=== PATIENT | male | born 1930 | race Caucasian/White ===

== ENCOUNTER 2019-08-16 15:30 | Inpatient (IN) | payer OTHER, BC ==
[~2019-08-16] VITALS: Ht 198.1 cm; Wt 88.9 kg
--- NOTE | 2019-08-16 16:00 | NUR ---
Placed in room 8. Placed on athletic monitor, blood pressure machine and pulse oximeter. To gown for exam. Side rails up.
[2019-08-16] MEDS ORDERED: NACL 0.9% 1,000 ML IV ONE (16:14)
[2019-08-16 16:15] VITALS: BP_SYST 96
--- NOTE | 2019-08-16 16:15 | NUR ---
ER Dr. Teran at bedside examining patient.
--- NOTE | 2019-08-16 16:15 | NUR ---
Patient is awake, alert, and oriented x4. Patient was told by Dr. Dudley to come to the office due to abnormal lab values. Family does not know what it is. No complaints from patient at this time.
[2019-08-16 16:44] LABS: BASOPHILS % (AUTO) 0.3 % (0.0-2.0); EOSINOPHILS % (AUTO) 0.1 % (0.0-4.0); HEMATOCRIT 29.7 % (36-54); LYMPHOCYTES # (AUTO) 0.5 K/uL (1.0-5.5); LYMPHOCYTES % (AUTO) 6.4 % (20.5-51.5); MEAN CORPUSCULAR HEMOGLOBIN 30 pg (27-31); MEAN CORPUSCULAR HGB CONC 34 % (32-36); MEAN CORPUSCULAR VOLUME 90 fL (79.0-98.0); MONOCYTES # (AUTO) 0.3 K/uL (0.0-1.0); MONOCYTES % (AUTO) 4.1 % (1.7-9.3); NEUTROPHILS # (AUTO) 6.5 K/uL (1.8-7.7); NEUTROPHILS % (AUTO) 89.1 % (40.0-70.0); PLATELET COUNT (AUTO) 123 K/uL (130-430); RED CELL DISTRIBUTION WIDTH 21.4 % (9.0-15.0); WHITE BLOOD COUNT (AUTO) 7.3 K/uL (4.8-10.8)
--- NOTE | 2019-08-16 16:45 | NUR ---
ASSUMED CARE OF PATIENT
[2019-08-16 16:48] LABS: BILIRUBIN,URINE NEGATIVE (NEGATIVE); BLOOD, URINE NEGATIVE (NEGATIVE); CLARITY/URINE CLEAR (CLEAR); COLOR,URINE YELLOW (YELLOW); GLUCOSE,URINE 2+ (NEGATIVE); KETONES,URINE NEGATIVE (NEGATIVE); LEUKOCYTE ESTERASE ,URINE NEGATIVE (NEGATIVE); NITRITE, URINE NEGATIVE (NEGATIVE); PH,URINE 6.5 (5.0-8.0); PROTEIN URINE NEGATIVE (NEGATIVE); UROBILINOGEN,URINE 0.2 (0.2-1.0)
[2019-08-16 17:02] LABS: ALANINE AMINOTRANSFERASE 38 U/L (12-78); ANION GAP 8 (5-15); ASPARTATE AMINOTRANSFERASE 48 U/L (10-37); CALCIUM 9.8 mg/dL (8.4-11.0); CHLORIDE 99 mmol/L (98-107); CREATININE 1.92 mg/dL (0.55-1.30); SODIUM SERUM 128 mmol/L (136-145); TOTAL BILIRUBIN 0.5 mg/dL (0.0-1.0); UREA NITROGEN, BLOOD 85 mg/dL (8-21)
[2019-08-16 17:03] LABS: BACTERIA,URINE FEW /HPF (None Seen); RBC,URINE 0-3 /HPF (0-3); WBC,URINE 0-3 /HPF (0-3)
[2019-08-16 17:07] LABS: GLUCOSE 430 mg/dL (70-99); POTASSIUM 6.9 mmol/L (3.5-5.1)
[2019-08-16] MEDS ORDERED: INSULIN REGULAR, HUMAN 10 UNITS/0.1 ML INJ IVP ONE (17:15)
[2019-08-16] MEDS ORDERED: SODIUM POLYSTYRENE SULFONATE 15 GM/60 ML UDBTL PO ONE (17:15)
--- NOTE | 2019-08-16 18:15 | NUR ---
DAUGHTER OF PT: DEWEY BAJWA AT , STATES SHE IS "POWER OF ATTORNY" DEWEY BAJWA [phone]
[2019-08-16] MEDS ORDERED: INSU300I SQ (18:38)
[2019-08-16] MEDS ORDERED: LISI2.5T48 PO ×2 (18:39)
[2019-08-16] MEDS ORDERED: MEGE20TA6 PO (18:43)
[2019-08-16] MEDS ORDERED: LEVO75TA7 PO (18:43)
[2019-08-16] MEDS ORDERED: GLIP5TAB26 PO (18:45)
[2019-08-16] MEDS ORDERED: TAMS-11 PO (18:45)
[2019-08-16] MEDS ORDERED: FURO-149 PO (18:49)
[2019-08-16] MEDS ORDERED: MAGN400C PO (18:49)
[2019-08-16] MEDS ORDERED: PRED10TA PO (18:49)
[2019-08-16] MEDS ORDERED: VITD2000 PO (18:49)
[2019-08-16] MEDS ORDERED: CHOL500037 PO (18:49)
[2019-08-16] MEDS ORDERED: ALLO100T PO (18:49)
[2019-08-16] MEDS ORDERED: CYAN100010 PO (18:52)
[2019-08-16] MEDS ORDERED: CALC-1050 PO (18:52)
[2019-08-16] MEDS ORDERED: POTA10TA15 PO (18:52)
[2019-08-16] MEDS ORDERED: FERR159T3 PO (18:53)
[2019-08-16] MEDS ORDERED: BACL10TA PO (18:56)
[2019-08-16] MEDS ORDERED: SPIR50TA5 PO (18:56)
--- NOTE | 2019-08-16 18:57 | NUR ---
Medication reconciliation completed with information provided by DAUGHTER OF PATIENT. Any prior medication reconciliation on file was reviewed and corrected.
[2019-08-16] MEDS ORDERED: SSNOVOLOG SUBCUT (18:59)
[2019-08-16] MEDS ORDERED: APIX2.5T PO (18:59)
--- NOTE | 2019-08-16 19:03 | NUR ---
Patient will be admitted to care of DR. CUMMINGS. Admitted to TELE unit. Will go to room 132C. Belongings list completed. Complete and up to date summary report printed. SBAR report to be given at bedside with opportunity for questions. Transfer to TELE via ACLS protocol. Licensed nurse present. IV present no signs or symptoms of infiltration.
--- NOTE | 2019-08-16 19:15 | NUR ---
ADMISSION NOTE Received patient from ER via tabitha, received report from ASSEMBLY MACHINE OFFBEARER. Patient admitted with diagnosis of DEHYDRATIONA AND POSSIBLE PNA. Patient oriented to hospital routine, call light, toileting and safety-patient verbalized understanding. FAMILY AT THE BEDSIDE.
[2019-08-16 19:28] VITALS: BP_SYST 96
--- NOTE | 2019-08-16 20:00 | NUR ---
Family at the bedside. Pt is sitting in bed with his feet on the floor. No c/o pain or discomfort.
[2019-08-16] MEDS ORDERED: LevALBUTEROL HCL 1.25 MG/0.5 ML *CONC.* VIAL.NEB (XOPENEX CONC.) INH PRN (20:15)
[2019-08-16] MEDS ORDERED: MEGESTROL ACETATE 40 MG PO SCH (21:00)
[2019-08-16] MEDS: BACLOFEN 10 MG TABLET PO SCH ×2 (21:00→21:38)
[2019-08-16] MEDS ORDERED: MEGESTROL ACETATE 400 MG/10 ML UDC PO SCH (21:00)
[2019-08-16] MEDS: 0.45% NACL 1,000 ML IV SCH (21:39)
[2019-08-16] MEDS: DOXYCYCLINE HYCLATE 100 MG in D5W 100 ML IV SCH (21:39)
[2019-08-16] MEDS ORDERED: DOXYCYCLINE HYCLATE 100 MG VIAL IV ONE (21:40)
--- NOTE | 2019-08-16 22:00 | NUR ---
IVF is infusing well in RAC. Pt still sitting on his bed with his feet on the floor.Family at the bedside.
[2019-08-16] MEDS: INSULIN REGULAR, HUMAN 100 UNITS/ML, 10 ML VIAL (humuLIN R) SUBCUT PRN (23:20)
--- NOTE | 2019-08-16 23:20 | NUR ---
Accucheck 241 and 4 units Regular Insulin given SQ. Skin warm and dry to touch. IVF is infusing well in RAC. Family still visiting at the bedside.
--- NOTE | 2019-08-17 01:00 | NUR ---
Pt is resting quietly in bed. Call light is with pt and bed alarm is on. Caregiver is at the bedside in a recliner.
[2019-08-17 01:57] VITALS: BP_SYST 95
[2019-08-17 03:00] VITALS: BP_SYST 95
--- NOTE | 2019-08-17 03:00 | NUR ---
Pt is sleeping without any distress noted. IVF is infusing well in RAC. Call light is with pt and bed alarm is on. Pt's Caregiver is in the room with pt.
--- NOTE | 2019-08-17 04:20 | NUR ---
Pt was incontinent of urine. Mindy care given by SUPERVISOR EXTRUSION.
--- NOTE | 2019-08-17 05:22 | NUR ---
Accucheck 109 and no Insulin coverage needed. Skin warm and dry to touch. IVF is infusing well in RAC. Caregiver is at the bedside.
[2019-08-17] MEDS: LEVOTHYROXINE SODIUM 0.075 MG TABLET PO SCH ×2 (06:24→17:08)
--- NOTE | 2019-08-17 06:49 | NUR ---
Pt is awake and resting comfortably in bed. All pt's needs were attended to. IVF is infusing well in RAC. Will endorse to day shift nurse.
[2019-08-17 07:32] LABS: BASOPHILS % (AUTO) 0.4 % (0.0-2.0); EOSINOPHILS # (AUTO) 0.1 K/uL (0.0-0.4); HEMOGLOBIN 9.1 g/dL (14.0-18.0); MONOCYTES # (AUTO) 0.7 K/uL (0.0-1.0); WHITE BLOOD COUNT (AUTO) 8.4 K/uL (4.8-10.8)
[2019-08-17] MEDS: LevALBUTEROL HCL 1.25 MG/0.5 ML *CONC.* VIAL.NEB (XOPENEX CONC.) INH SCH ×3 (07:41→22:01)
[2019-08-17 07:48] LABS: MEAN CORPUSCULAR HGB CONC 34 % (32-36); MEAN CORPUSCULAR VOLUME 90 fL (79.0-98.0)
[2019-08-17 07:52] LABS: HEMATOCRIT 26.8 % (36-54); MEAN CORPUSCULAR HEMOGLOBIN 31 pg (27-31); NEUTROPHILS % (AUTO) 74.8 % (40.0-70.0); PLATELET COUNT (AUTO) 115 K/uL (130-430); RED BLOOD CELL COUNT(AUTO) 2.99 MIL/uL (4.2-6.2); RED CELL DISTRIBUTION WIDTH 21.7 % (9.0-15.0)
[2019-08-17 07:53] LABS: EOSINOPHILS % (AUTO) 1.5 % (0.0-4.0); LYMPHOCYTES # (AUTO) 1.3 K/uL (1.0-5.5); MONOCYTES % (AUTO) 8.3 % (1.7-9.3); NEUTROPHILS # (AUTO) 6.2 K/uL (1.8-7.7)
[2019-08-17 08:00] VITALS: BP_SYST 92
--- NOTE | 2019-08-17 08:00 | NUR ---
AM ASSESSMENT. PT ALERT, TRANSLATING WORDS FROM [place] TO [place] TOWARDS HIS FAMILY, PATIENT AFEBRILE, STATED "I'M FINE, WHEN I'M NOT MOVING OR TURNING", CALL LIGHT PLACED IN REACH FOR ASSISTANCE.
[2019-08-17 08:06] LABS: ANION GAP 4 (5-15); CALCIUM 9.5 mg/dL (8.4-11.0); CHLORIDE 104 mmol/L (98-107); CREATININE 1.41 mg/dL (0.55-1.30); GLUCOSE 107 mg/dL (70-99); SODIUM SERUM 131 mmol/L (136-145); UREA NITROGEN, BLOOD 63 mg/dL (8-21)
[2019-08-17 08:20] LABS: POTASSIUM 5.8 mmol/L (3.5-5.1)
[2019-08-17] MEDS: LISINOPRIL 5 MG TABLET PO SCH (09:00)
[2019-08-17] MEDS ORDERED: INSULIN GLARGINE HUM REC ANLOG 35 UNIT SQ SCH (09:00)
[2019-08-17] MEDS: DOXYCYCLINE HYCLATE 100 MG in D5W 100 ML IV SCH ×2 (09:19→21:38)
[2019-08-17] MEDS: MEGESTROL ACETATE 400 MG/10 ML UDC PO SCH ×2 (09:19→21:38)
[2019-08-17] MEDS: ALLOPURINOL 100 MG TABLET (ZYLOPRIM) PO SCH (09:19)
[2019-08-17] MEDS: MAGNESIUM OXIDE 400 MG TABLET PO SCH ×2 (09:20→21:45)
[2019-08-17] MEDS: BACLOFEN 10 MG TABLET PO SCH ×2 (09:21→21:24)
[2019-08-17] MEDS: CHOLECALCIFEROL (VITAMIN D3) 2,000 UNIT TABLET PO SCH (09:21)
[2019-08-17] MEDS: CYANOCOBALAMIN 1000 mCg TABLET PO SCH (09:22)
[2019-08-17] MEDS: glipiZIDE XL 5 MG TAB ( GLUCOTROL XL) PO SCH (09:23)
[2019-08-17] MEDS: PREDNISONE 10 MG TABLET PO SCH (09:23)
--- NOTE | 2019-08-17 10:48 | NUR ---
Nutrition Update Jerry Scale 18 noted. Pt admitted for dehydration and possible pneumonia. Diet: CCHO & mechanical soft (2 active diet orders) BMI: 22.6 kg/m2 RD to follow per nutrition care standards.
--- NOTE | 2019-08-17 11:30 | NUR ---
WOUND EVALUATION: Wound Consult received from Dr. Dudley. Thank you Dr. Dudley, for the consult. Patient was awake, alert, oriented and received in a [place] Bed with an Atmos-Air 9000 mattress. Patient needs some assist to turn in bed. Jerry Score is an 18. Past Medical History: Hypertension, Diabetes Mellitus, lung cancer. Recent Labs: WBC 8.4, RBC 2.99, hemoglobin 9.1, hematocrit 26.8, sodium 131, potassium 5.8, BU and 63, creatinine 1.41, glucose 107, POC glucose 237, albumin 2.0. Microbiology: Blood culture results 2 in progress. Urine culture results in progress. Intrinsic factors that delay wound healing: Diabetes Mellitus, lung cancer, Hypoalbuminemia. Extrinsic factors that delay wound healing: Decreased mobility. Wound Assessment: 1. Coccygeal area: Pressure ulcer, present on admission. Appears to be chronic/stable. Wound bed has 70% yellow tissue, 30% pink tissue. No odor, no drainage. Periwound intact. Surrounding tissue has blanchable red erythema. Wound measures 0.9 cm x 0.4 cm. 2. Left buttock: IAD with moisture associated skin damage, present on admission. Wound bed has 100% pink tissue. No odor, no drainage. Periwound intact. Surrounding tissue has blanchable red erythema. Wound measures 1.4 cm x 1.3 cm. Recommend: Cleanse wounds with normal saline. Apply Calmoseptine cream to wounds, devin-wounds, and surrounding tissue. Cover with Sacral foam dressing. Perform wound care daily, and as needed for dressing soiling or dislodgement. Also recommend: Reposition patient side to side only every 2 hours with pillow support. Elevate, off-load and float bilateral heels with one pillow lengthwise under each extremity at all times. Offload pressure areas with pillows for pressure re-distribution. Perform skin care and monitor skin integrity Q shift. Use Calmoseptine cream on moisture susceptible areas QID and PRN for soiling. Place patient on a low air loss mattress.
[2019-08-17] MEDS: FERROUS SULFATE 142 MG TABLET.ER PO SCH (11:37)
[2019-08-17] MEDS: INSULIN REGULAR, HUMAN 100 UNITS/ML, 10 ML VIAL (humuLIN R) SUBCUT PRN ×3 (11:53→23:56)
[2019-08-17 13:21] VITALS: BP_SYST 106
[2019-08-17] MEDS ORDERED: INSULIN GLARGINE 100 UNITS/ML 10 ML VIAL SUBCUT ONE (13:45)
[2019-08-17] MEDS: 0.45% NACL 1,000 ML IV SCH ×2 (14:44→22:55)
[2019-08-17 16:28] VITALS: BP_SYST 113
[2019-08-17] MEDS ORDERED: SODIUM POLYSTYRENE SULFONATE 15 GM/60 ML UDBTL PO ONE (17:00)
[2019-08-17] MEDS: TAMSULOSIN HCL 0.4 MG CAP PO SCH (17:07)
[2019-08-17] MEDS: APIXABAN 2.5 MG TABLET PO SCH (17:08)
--- NOTE | 2019-08-17 18:00 | NUR ---
TRANSFER MOVED PT TO ROOM 118-B, WITH ALL HIS PERSONAL BELONGINGS.
[2019-08-17] MEDS: MENTHOL/ZINC OXIDE 113 GM OINT. TP PRN (18:13)
--- NOTE | 2019-08-17 19:30 | NUR ---
Pt was received lying in bed fully awake, alert and oriented x4. No acute distress noted at this time and no c/o pain or discomfort. IVF of 1/2 NS is infusing well in RAC at 75ml/hr without any signs of infiltration. Skin is warm and dry to touch. No signs or symptoms of hypoglycemia or hyperglycemia noted. Pt's daughter and his Caregiver are at the bedside. Call light is with pt and bed alarm is on.
[2019-08-17 20:00] VITALS: BP_SYST 106
[2019-08-17] MEDS: CALCIUM CARBONATE/VITAMIN D3 1 TAB TABLET PO SCH (21:38)
--- NOTE | 2019-08-17 21:38 | NUR ---
Scheduled HS medications given. No difficulty swallowing noted. IVF is infusing well in RAC. Call light is with pt and bed alarm is on.
--- NOTE | 2019-08-17 22:00 | NUR ---
Per family, pt was visited by Dr. Dudley.
[2019-08-17] MEDS ORDERED: guaiFENesin 200 MG/CODEINE 20 MG/ 10 ML UDC PO SCH (22:30)
--- NOTE | 2019-08-17 22:46 | NUR ---
Robmarcising AC 10mg Addendum: 08/18/19 at 0244 by Patsy Rene RN Correction: Robitussin AC 10ml was given po for cough with relief.
--- NOTE | 2019-08-17 23:48 | NUR ---
Accucheck 186 and 2 units Regular Insulin given SQ. Skin remains warm and dry to touch. IVF is infusing well in [facility]. Grandson is visiting at the bedside. Call light is with pt and bed alarm is on.
--- NOTE | 2019-08-18 01:00 | NUR ---
Pt is sleeping comfortably in bed. IVF is infusing well in RAC. Call light is with pt and bed alarm is on.
--- NOTE | 2019-08-18 03:00 | NUR ---
Pt is resting quietly in bed. Caregiver is at the bedside. IVF is infusing well in [facility]. Call light is with pt and bed alarm is on.
[2019-08-18] MEDS: INSULIN REGULAR, HUMAN 100 UNITS/ML, 10 ML VIAL (humuLIN R) SUBCUT PRN ×3 (05:35→17:36)
[2019-08-18] MEDS: 0.45% NACL 1,000 ML IV SCH (05:37)
--- NOTE | 2019-08-18 06:30 | NUR ---
Pt is awake and resting comfortably in bed. All pt's needs were attended to. IVF is infusing well in RAC. Will endorse to day shift nurse.
[2019-08-18 06:36] LABS: BASOPHILS % (AUTO) 0.4 % (0.0-2.0); EOSINOPHILS # (AUTO) 0.1 K/uL (0.0-0.4); EOSINOPHILS % (AUTO) 1.6 % (0.0-4.0); HEMATOCRIT 26.2 % (36-54); HEMOGLOBIN 8.8 g/dL (14.0-18.0); LYMPHOCYTES # (AUTO) 1.1 K/uL (1.0-5.5); LYMPHOCYTES % (AUTO) 13.9 % (20.5-51.5); MEAN CORPUSCULAR HEMOGLOBIN 30 pg (27-31); MEAN CORPUSCULAR HGB CONC 33 % (32-36); MEAN CORPUSCULAR VOLUME 90 fL (79.0-98.0); MONOCYTES # (AUTO) 0.6 K/uL (0.0-1.0); NEUTROPHILS # (AUTO) 6.4 K/uL (1.8-7.7); NEUTROPHILS % (AUTO) 77.1 % (40.0-70.0); PLATELET COUNT (AUTO) 116 K/uL (130-430); RED BLOOD CELL COUNT(AUTO) 2.91 MIL/uL (4.2-6.2); RED CELL DISTRIBUTION WIDTH 21.5 % (9.0-15.0); WHITE BLOOD COUNT (AUTO) 8.3 K/uL (4.8-10.8)
[2019-08-18 06:44] LABS: ANION GAP 3 (5-15); CALCIUM 9.2 mg/dL (8.4-11.0); CHLORIDE 103 mmol/L (98-107); CREATININE 1.43 mg/dL (0.55-1.30); GLUCOSE 172 mg/dL (70-99); POTASSIUM 5.3 mmol/L (3.5-5.1); SODIUM SERUM 131 mmol/L (136-145); UREA NITROGEN, BLOOD 45 mg/dL (8-21)
[2019-08-18 06:50] LABS: TOTAL IRON BIND. CAPACITY 127 ug/dL (250-450)
[2019-08-18] MEDS: LEVOTHYROXINE SODIUM 0.075 MG TABLET PO SCH ×2 (07:00→16:22)
--- NOTE | 2019-08-18 07:30 | NUR ---
OPENING NOTES: RECEIVED PATIENT FROM ADVERTISING PROJECT MANAGER NURSE. PATIENT IS ASLEEP IN BED. FAMILY AT BEDSIDE. NO SIGNS OF DISTRESS OR SHORTNESS OF BREATH NOTED. IV SITE INTACT WITH NO SIGNS OF INFILTRATION NOTED. PATIENT IS TOLERATING OXYGEN ON 2 L NASAL CANNULA. PATIENT IN STABLE CONDITION. SAFETY, FALL AND ASPIRATION PRECAUTIONS ARE IN PLACE. BED LOCKED IN LOWEST POSITION WITH CALL LIGHT IN REACH. WILL CONTINUE TO MONITOR PATIENT FOR ANY CHANGES.
[2019-08-18] MEDS: LevALBUTEROL HCL 1.25 MG/0.5 ML *CONC.* VIAL.NEB (XOPENEX CONC.) INH SCH (07:31)
[2019-08-18 08:42] VITALS: BP_SYST 107
[2019-08-18] MEDS: FERROUS SULFATE 142 MG TABLET.ER PO SCH (09:00)
[2019-08-18] MEDS: LISINOPRIL 5 MG TABLET PO SCH (09:49)
[2019-08-18] MEDS: MAGNESIUM OXIDE 400 MG TABLET PO SCH ×2 (09:50→21:00)
[2019-08-18] MEDS: ALLOPURINOL 100 MG TABLET (ZYLOPRIM) PO SCH (09:50)
[2019-08-18] MEDS: CYANOCOBALAMIN 1000 mCg TABLET PO SCH (09:50)
[2019-08-18] MEDS: CHOLECALCIFEROL (VITAMIN D3) 2,000 UNIT TABLET PO SCH (09:50)
[2019-08-18] MEDS: glipiZIDE XL 5 MG TAB ( GLUCOTROL XL) PO SCH (09:50)
[2019-08-18] MEDS: CALCIUM CARBONATE/VITAMIN D3 1 TAB TABLET PO SCH ×2 (09:50→22:47)
[2019-08-18] MEDS: BACLOFEN 10 MG TABLET PO SCH ×2 (09:50→21:00)
[2019-08-18] MEDS: PREDNISONE 10 MG TABLET PO SCH (09:50)
[2019-08-18] MEDS: DOXYCYCLINE HYCLATE 100 MG in D5W 100 ML IV SCH ×2 (09:51→22:45)
[2019-08-18] MEDS: MEGESTROL ACETATE 400 MG/10 ML UDC PO SCH ×2 (09:51→22:50)
[2019-08-18] MEDS: INSULIN GLARGINE 100 UNITS/ML 10 ML VIAL SUBCUT SCH (09:53)
--- NOTE | 2019-08-18 10:05 | NUR ---
RN ROUNDS: PATIENT IS AWAKE AND ALERT x4 LAYING DOWN IN BED. PATIENT DENIES ANY PAIN AT THE MOMENT. FAMILY AT BEDSIDE. NO SIGNS OF DISTRESS OR SHORTNESS OF BREATH NOTED PATIENT IN STABLE CONDITION.
--- NOTE | 2019-08-18 12:15 | NUR ---
RN ROUNDS: PATIENT IS AWAKE AND ALERT x4 LAYING DOWN IN BED. PATIENT DENIES ANY PAIN AT THE MOMENT. NO SIGNS OF DISTRESS OR SHORTNESS OF BREATH NOTED. PATIENT IN STABLE CONDITION. WILL CONTINUE TO MONITOR PATIENT FOR ANY CHANGES.
[2019-08-18 12:52] VITALS: BP_SYST 106
[2019-08-18] MEDS: guaiFENesin 200 MG/CODEINE 20 MG/ 10 ML UDC PO SCH ×2 (13:37→22:51)
--- NOTE | 2019-08-18 14:23 | NUR ---
RN ROUNDS: PATIENT IS ASLEEP LAYING DOWN IN BED. FAMILY AT BEDSIDE. NO SIGNS OF DISTRESS OR SHORTNESS OF BREATH NOTED. PATIENT IN STABLE CONDITION. WILL CONTINUE TO MONITOR PATIENT FOR ANY CHANGES.
[2019-08-18] MEDS ORDERED: methylPREDNISolone SOD SUCC/PF 62.5 MG/ML VIAL IVP ONE (16:00)
--- NOTE | 2019-08-18 16:05 | NUR ---
RN ROUNDS: PATIENT IS ASLEEP LAYING DOWN IN BED. FAMILY AT BEDSIDE. NO SIGNS OF DISTRESS OR SHORTNESS OF BREATH NOTED. PATIENT TOLERATING OXYGEN ON OXIMIZER AT 5 L. PATIENT IN STABLE CONDITION. WILL CONTINUE TO MONITOR PATIENT FOR ANY CHANGES.
[2019-08-18 16:49] VITALS: BP_SYST 93
[2019-08-18] MEDS: TAMSULOSIN HCL 0.4 MG CAP PO SCH (17:18)
[2019-08-18] MEDS: APIXABAN 2.5 MG TABLET PO SCH (17:19)
--- NOTE | 2019-08-18 17:55 | NUR ---
Dietitian Recommendations * [facility] diet w/ Glucerna BID and Dexter BID (supplements provide an additional 620 kcal/day, 25 gm protein/day) DANNY, RD Please refer to Nutrition Assessment for details. Addendum: 08/18/19 at [address] Amended: Links added.
--- NOTE | 2019-08-18 18:45 | NUR ---
CLOSING NOTES: PATIENT IS ASLEEP IN BED. FAMILY AT BEDSIDE. NO SIGNS OF DISTRESS OR SHORTNESS OF BREATH NOTED. IV SITE INTACT WITH NO SIGNS OF INFILTRATION NOTED. PATIENT IS TOLERATING OXYGEN ON 2 L NASAL CANNULA. PATIENT IN STABLE CONDITION. SAFETY, FALL AND ASPIRATION PRECAUTIONS REMAINED IN PLACE THROUGHOUT THE SHIFT. BED LOCKED IN LOWEST POSITION WITH CALL LIGHT IN REACH. WILL ENDORSE PATIENT CARE TO ONCOMING CHUCKING AND SAWING MACHINE OPERATOR NURSE.
[2019-08-18 20:00] VITALS: BP_SYST 91
--- NOTE | 2019-08-18 21:00 | NUR ---
pt recieved alert oriented x4 .pt on sr , no c/o chest pain or sob , pt on iv i/2ns at 75cc/hr pt is incontinent . will continue to monitor pt .
--- NOTE | 2019-08-18 22:31 | NUR ---
COMMUNICATION WITH MERGERS AND ACQUISITIONS MANAGER PER MERGERS AND ACQUISITIONS MANAGER/QUE SHAH, SHE HAS SEEN THE PATIENT "CRASH" WHEN HE GETS BACLOFEN, AND THAT THE MEDICATION IS BEING GIVEN SCHEDULED INSTEAD OF PRN PER THE DOSAGE SHE GAVE IN ER ON ADMISSION. MERGERS AND ACQUISITIONS MANAGER STATES THAT WHEN PATIENT GETS BACLOFEN, HE GETS VERY LETHARGIC, AND HIS OXYGEN SATURATION GOES VERY LOW (52% ONCE). MD WILL BE MADE AWARE.
[2019-08-18] MEDS: methylPREDNISolone SOD SUCC/PF 62.5 MG/ML VIAL IVP SCH (22:45)
[2019-08-19] VITALS: BP_SYST 91
--- NOTE | 2019-08-19 | NUR ---
iv infusing well . pt changed and repositioned , on sinus rythm . while monitor pt through the night.
[2019-08-19] MEDS: LevALBUTEROL HCL 1.25 MG/0.5 ML *CONC.* VIAL.NEB (XOPENEX CONC.) INH SCH ×4 (00:24→23:22)
[2019-08-19] MEDS: INSULIN REGULAR, HUMAN 100 UNITS/ML, 10 ML VIAL (humuLIN R) SUBCUT PRN ×4 (00:36→17:35)
[2019-08-19] MEDS: 0.45% NACL 1,000 ML IV SCH ×2 (06:00→13:59)
--- NOTE | 2019-08-19 06:00 | NUR ---
bs 226 pt covered with insullin 4 units . pt on sinus rythm will continue to monitor pt .
[2019-08-19] MEDS: guaiFENesin 200 MG/CODEINE 20 MG/ 10 ML UDC PO SCH ×3 (06:57→22:25)
[2019-08-19] MEDS: methylPREDNISolone SOD SUCC/PF 62.5 MG/ML VIAL IVP SCH ×3 (06:58→22:25)
[2019-08-19] MEDS: LEVOTHYROXINE SODIUM 0.075 MG TABLET PO SCH ×2 (06:58→16:49)
--- NOTE | 2019-08-19 07:30 | NUR ---
OPENING NOTES: RECEIVED PATIENT FROM GLOBAL CEO NURSE. PATIENT IS AWAKE AND ALERT x3 LAYING DOWN IN BED. FAMILY AT BEDSIDE. PATIENT DENIES ANY PAIN AT THE MOMENT. NO SIGNS OF DISTRESS OR SHORTNESS OF BREATH NOTED. IV SITE INTACT WITH NO SIGNS OF INFILTRATION NOTED. PATIENT IS TOLERATING OXYGEN ON 5 L OXIMIZER. PATIENT IN STABLE CONDITION. SAFETY, FALL AND ASPIRATION PRECAUTIONS ARE IN PLACE. BED LOCKED IN LOWEST POSITION WITH CALL LIGHT IN REACH. WILL CONTINUE TO MONITOR PATIENT FOR ANY CHANGES.
[2019-08-19 08:10] LABS: FERRITIN 291 ng/mL (30-400); FOLATE (FOLIC ACID) 18.4 ng/mL (>3.0)
[2019-08-19 08:14] VITALS: BP_SYST 97
[2019-08-19] MEDS: LISINOPRIL 5 MG TABLET PO SCH (09:00)
--- NOTE | 2019-08-19 10:15 | NUR ---
RN ROUNDS: PATIENT IS AWAKE AND ALERT x4 LAYING DOWN IN BED. FAMILY AT BEDSIDE. NO SIGNS OF DISTRESS OR SHORTNESS OF BREATH NOTED. PATIENT DENIES ANY PAIN AT THE MOMENT. PATIENT IN STABLE CONDITION. WILL CONTINUE TO MONITOR PATIENT FOR ANY CHANGES.
[2019-08-19] MEDS: MEGESTROL ACETATE 400 MG/10 ML UDC PO SCH ×2 (10:21→20:36)
[2019-08-19] MEDS: DOXYCYCLINE HYCLATE 100 MG in D5W 100 ML IV SCH ×2 (10:22→20:38)
[2019-08-19] MEDS: FERROUS SULFATE 142 MG TABLET.ER PO SCH (10:23)
[2019-08-19] MEDS: glipiZIDE XL 5 MG TAB ( GLUCOTROL XL) PO SCH (10:24)
[2019-08-19] MEDS: MAGNESIUM OXIDE 400 MG TABLET PO SCH ×2 (10:24→20:36)
[2019-08-19] MEDS: CHOLECALCIFEROL (VITAMIN D3) 2,000 UNIT TABLET PO SCH (10:24)
[2019-08-19] MEDS: BACLOFEN 10 MG TABLET PO SCH ×2 (10:25→20:36)
[2019-08-19] MEDS: CYANOCOBALAMIN 1000 mCg TABLET PO SCH (10:25)
[2019-08-19] MEDS: ALLOPURINOL 100 MG TABLET (ZYLOPRIM) PO SCH (10:25)
[2019-08-19] MEDS: CALCIUM CARBONATE/VITAMIN D3 1 TAB TABLET PO SCH ×2 (10:25→22:25)
[2019-08-19] MEDS: INSULIN GLARGINE 100 UNITS/ML 10 ML VIAL SUBCUT SCH (10:28)
[2019-08-19 12:36] VITALS: BP_SYST 101
--- NOTE | 2019-08-19 12:40 | NUR ---
RN ROUNDS: PATIENT IS ASLEEP LAYING DOWN IN BED. NO SIGNS OF DISTRESS OR SHORTNESS OF BREATH NOTED. PATIENT IN STABLE CONDITION. WILL CONTINUE TO MONITOR PATIENT FOR ANY CHANGES.
--- NOTE | 2019-08-19 14:30 | NUR ---
RN ROUNDS: PATIENT IS AWAKE AND ALERT x4 LAYING DOWN IN BED. NO SIGNS OF DISTRESS OR SHORTNESS OF BREATH NOTES. PATIENT DENIES ANY PAIN AT THE MOMENT. PATIENT IN STABLE CONDITION. WILL CONTINUE TO MONITOR PATIENT FOR ANY CHANGES.
--- NOTE | 2019-08-19 15:25 | NUR ---
CALLED: SPOKE WITH DR. MANN REGARDING LOW MAGNESIUM LEVEL. DR. MANN SAID NOT TO GIVE ANYTHING TODAY AND TO RECHECK MAGNESIUM LEVEL TOMORROW. NEW ORDER PUT IN.
[2019-08-19 16:14] VITALS: BP_SYST 93
[2019-08-19] MEDS ORDERED: DEXTROSE 50%-WATER 50 ML DISP.SYRIN IVP PRN (16:15)
[2019-08-19] MEDS ORDERED: D5W 1,000 ML IV PRN (16:15)
[2019-08-19] MEDS ORDERED: GLUCOSE 15 GM GEL (in 37.5 GM TUBE) PO PRN (16:15)
[2019-08-19] MEDS: APIXABAN 2.5 MG TABLET PO SCH (17:34)
[2019-08-19] MEDS: TAMSULOSIN HCL 0.4 MG CAP PO SCH (17:34)
--- NOTE | 2019-08-19 18:56 | NUR ---
CLOSING NOTES: PATIENT IS AWAKE AND ALERT x3 LAYING DOWN IN BED. FAMILY AT BEDSIDE. PATIENT DENIES ANY PAIN AT THE MOMENT. NO SIGNS OF DISTRESS OR SHORTNESS OF BREATH NOTED. IV SITE BECAME INFILTRATED. IV CATHETER REMOVED AND INTACT WITH NO ACTIVE BLEEDING NOTED. PATIENT IS TOLERATING OXYGEN ON 5 L OXIMIZER. PATIENT IN STABLE CONDITION. SAFETY, FALL AND ASPIRATION PRECAUTIONS REMAINED IN PLACE THROUGHOUT THE SHIFT. BED LOCKED IN LOWEST POSITION WITH CALL LIGHT IN REACH. WILL ENDORSE PATIENT CARE TO ONCOMING ALTERATION INSPECTOR NURSE.
--- NOTE | 2019-08-19 19:25 | NUR ---
CHANGE OF SHIFT; pt. resting when received. IV accidentally came out prior to change of shift. caregiver at bedside. pt. speaks hungarian and nepali. call light at bedside. on fall risk precautions. will reassess alter.
[2019-08-19 20:00] VITALS: BP_SYST 90
--- NOTE | 2019-08-19 20:30 | NUR ---
NOTES: pt. awake, alert and oriented. denies any discomfort at this time. on 5 liters O2 per oximizer, noted occ. bouts of non productive cough. HOB fairly elevated. cardiac pattern shows sinus tach. noted skin bruising on upper arms. gets incontinent of urine and stool. pt. repositioned.
--- NOTE | 2019-08-19 21:30 | NUR ---
NOTES: due medications given. IV restarted on rt hand with gauge # 24, resume IVF.
[2019-08-20] MEDS: INSULIN REGULAR, HUMAN 100 UNITS/ML, 10 ML VIAL (humuLIN R) SUBCUT PRN ×4 (00:04→16:57)
[2019-08-20] MEDS: 0.45% NACL 1,000 ML IV SCH ×2 (00:07→13:48)
--- NOTE | 2019-08-20 00:15 | NUR ---
NOTES: pt. sleeping awakened. BS checked 310 with sliding scale coverage given. caregiver remain at bedside.
--- NOTE | 2019-08-20 02:30 | NUR ---
NOTES: pt. sleeping, no distress. cardiac pattern unchanged. IVF patent.
--- NOTE | 2019-08-20 04:30 | NUR ---
NOTES": condition unchnaged. pt. sleeping with caregiver at bedside.
[2019-08-20 05:14] VITALS: BP_SYST 108
--- NOTE | 2019-08-20 05:30 | NUR ---
NOTES: complete am care and linen changed, pt. incontinent.
[2019-08-20] MEDS: guaiFENesin 200 MG/CODEINE 20 MG/ 10 ML UDC PO SCH ×3 (06:25→21:05)
[2019-08-20] MEDS: methylPREDNISolone SOD SUCC/PF 62.5 MG/ML VIAL IVP SCH ×3 (06:25→21:06)
--- NOTE | 2019-08-20 06:30 | NUR ---
CLOSING NOTES; still sleeping, BS checked 276 with sliding scale coverage. IV site patent. O2 continuous. for further care and assist. will endorse to day shift. fall risk precautions observed. call light within reach.
[2019-08-20] MEDS: LevALBUTEROL HCL 1.25 MG/0.5 ML *CONC.* VIAL.NEB (XOPENEX CONC.) INH SCH ×3 (07:00→23:20)
--- NOTE | 2019-08-20 07:24 | NUR ---
OPENING NOTES: RECEIVED PATIENT FROM SHIPPING HELPER NURSE. PATIENT IS AWAKE AND ALERT x3 LAYING DOWN IN BED. FAMILY AT BEDSIDE. PATIENT DENIES ANY PAIN AT THE MOMENT. NO SIGNS OF DISTRESS OR SHORTNESS OF BREATH NOTED. IV SITE INTACT WITH NO SIGNS OF INFILTRATION NOTED. PATIENT IS TOLERATING OXYGEN ON 5 L OXIMIZER. PATIENT IN STABLE CONDITION. SAFETY, FALL AND ASPIRATION PRECAUTIONS ARE IN PLACE. BED LOCKED IN LOWEST POSITION WITH CALL LIGHT IN REACH. WILL CONTINUE TO MONITOR PATIENT FOR ANY CHANGES.
[2019-08-20] MEDS: LEVOTHYROXINE SODIUM 0.075 MG TABLET PO SCH ×2 (07:28→16:52)
[2019-08-20 08:09] VITALS: BP_SYST 113
[2019-08-20 08:39] LABS: BASOPHILS % (AUTO) 0.2 % (0.0-2.0); HEMATOCRIT 27.1 % (36-54); LYMPHOCYTES # (AUTO) 0.7 K/uL (1.0-5.5); LYMPHOCYTES % (AUTO) 9.8 % (20.5-51.5); MEAN CORPUSCULAR HEMOGLOBIN 30 pg (27-31); MEAN CORPUSCULAR HGB CONC 33 % (32-36); MEAN CORPUSCULAR VOLUME 91 fL (79.0-98.0); MONOCYTES # (AUTO) 0.3 K/uL (0.0-1.0); MONOCYTES % (AUTO) 3.6 % (1.7-9.3); NEUTROPHILS # (AUTO) 6.6 K/uL (1.8-7.7); NEUTROPHILS % (AUTO) 86.4 % (40.0-70.0); PLATELET COUNT (AUTO) 123 K/uL (130-430); RED BLOOD CELL COUNT(AUTO) 2.98 MIL/uL (4.2-6.2); RED CELL DISTRIBUTION WIDTH 21.8 % (9.0-15.0); WHITE BLOOD COUNT (AUTO) 7.6 K/uL (4.8-10.8)
[2019-08-20] MEDS: BACLOFEN 10 MG TABLET PO SCH ×2 (08:41→21:00)
[2019-08-20] MEDS: DOXYCYCLINE HYCLATE 100 MG in D5W 100 ML IV SCH ×2 (08:43→21:01)
[2019-08-20] MEDS: MAGNESIUM OXIDE 400 MG TABLET PO SCH ×2 (08:43→21:03)
[2019-08-20] MEDS: glipiZIDE XL 5 MG TAB ( GLUCOTROL XL) PO SCH (08:43)
[2019-08-20] MEDS: ALLOPURINOL 100 MG TABLET (ZYLOPRIM) PO SCH (08:43)
[2019-08-20] MEDS: CYANOCOBALAMIN 1000 mCg TABLET PO SCH (08:43)
[2019-08-20] MEDS: MEGESTROL ACETATE 400 MG/10 ML UDC PO SCH ×2 (08:43→21:02)
[2019-08-20] MEDS: CHOLECALCIFEROL (VITAMIN D3) 2,000 UNIT TABLET PO SCH (08:44)
[2019-08-20] MEDS: CALCIUM CARBONATE/VITAMIN D3 1 TAB TABLET PO SCH ×2 (08:44→21:02)
[2019-08-20] MEDS: LISINOPRIL 5 MG TABLET PO SCH (08:45)
[2019-08-20] MEDS: INSULIN GLARGINE 100 UNITS/ML 10 ML VIAL SUBCUT SCH (08:55)
[2019-08-20 09:08] LABS: ALANINE AMINOTRANSFERASE 29 U/L (12-78); ALBUMIN 1.8 g/dL (3.4-4.8); ANION GAP 6 (5-15); ASPARTATE AMINOTRANSFERASE 18 U/L (10-37); CALCIUM 9.9 mg/dL (8.4-11.0); CHLORIDE 104 mmol/L (98-107); CREATININE 1.33 mg/dL (0.55-1.30); GLUCOSE 307 mg/dL (70-99); POTASSIUM 5.2 mmol/L (3.5-5.1); SODIUM SERUM 134 mmol/L (136-145); TOTAL BILIRUBIN 0.3 mg/dL (0.0-1.0); UREA NITROGEN, BLOOD 61 mg/dL (8-21)
[2019-08-20] MEDS: FERROUS SULFATE 142 MG TABLET.ER PO SCH (09:51)
--- NOTE | 2019-08-20 10:11 | NUR ---
RN ROUNDS: PATIENT IS AWAKE AND ALERT x4 LAYING DOWN IN BED. FAMILY AT BEDSIDE. PATIENT DENIES ANY PAIN AT THE MOMENT. NO SIGNS OF DISTRESS OR SHORTNESS OF BREATH NOTED. PATIENT IN STABLE CONDITION. WILL CONTINUE TO MONITOR PATIENT FOR ANY CHANGES.
--- NOTE | 2019-08-20 12:20 | NUR ---
RN ROUNDS: PATIENT IS ASLEEP LAYING DOWN IN BED. NO SIGNS OF DISTRESS OR SHORTNESS OF BREATH NOTED. WOUND CARE PERFORMED. PATIENT TOLERATED IT WELL. PATIENT IN STABLE CONDITION. WILL CONTINUE TO MONITOR PATIENT FOR ANY CHANGES.
[2019-08-20 12:30] VITALS: BP_SYST 116
[2019-08-20] MEDS ORDERED: MILK OF MAGNESIA 30 ML UDC PO PRN (15:30)
[2019-08-20 16:25] VITALS: BP_SYST 96
--- NOTE | 2019-08-20 16:42 | NUR ---
RN ROUNDS: PATIENT IS AWAKE AND ALERT x4 LYING DOWN IN BED. FAMILY AT BEDSIDE. NO SIGNS OF DISTRESS OR SHORTNESS OF BREATH NOTED. PATIENT IN STABLE CONDITION. WILL CONTINUE TO MONITOR PATIENT FOR ANY CHANGES.
[2019-08-20] MEDS: APIXABAN 2.5 MG TABLET PO SCH (18:11)
[2019-08-20] MEDS: TAMSULOSIN HCL 0.4 MG CAP PO SCH (18:11)
[2019-08-20] MEDS ORDERED: MAG-AL HYDROX/SIMETH 30 ML UDC PO PRN (18:15)
--- NOTE | 2019-08-20 18:44 | NUR ---
CLOSING NOTES: PATIENT IS ASLEEP LAYING DOWN IN BED. FAMILY AT BEDSIDE. NO SIGNS OF DISTRESS OR SHORTNESS OF BREATH NOTED. IV SITE INTACT WITH NO SIGNS OF INFILTRATION NOTED. PATIENT IS TOLERATING OXYGEN ON 5 L OXIMIZER. PATIENT IN STABLE CONDITION. SAFETY, FALL AND ASPIRATION PRECAUTIONS REMAINED IN PLACE THROUGHOUT THE SHIFT. BED LOCKED IN LOWEST POSITION WITH CALL LIGHT IN REACH. WILL ENDORSE PATIENT CARE TO ONCOMING APPLICATION DEVELOPMENT LIAISON NURSE.
--- NOTE | 2019-08-20 19:15 | NUR ---
CHANGE OF SHIFT; pt. sleeping when received, caregiver at bedside. no acute distress. IVF infusing. on fall risk precautions. call light within reach. will reassess later.
--- NOTE | 2019-08-20 20:30 | NUR ---
NOTES: pt. was told and caregiver by charge nurse Wilmar, another pt. will be admitted in the room, pt. was not happy about it. repositioned and pulled up in bed. awake, alert. VS checked. IVF infusing via rt. hand/wrist area with 1/2 NS @ 75cc/hr. bruising on both arms. on 5 liters of O2 via oximizer, HOB slightly elevated. pt. gets incontinent, uses urinal at times. both sequentials on. cardiac pattern on sinus rhythm. on fall risk precautions. call light within reach.
--- NOTE | 2019-08-20 20:52 | NUR ---
ADMISSION NOTE Received patient from ER via gurney. Patient admitted with diagnosis of CHEST PAIN AND SHORTNESS OF BREATH. Patient is awake, alert, oriented. Patient oriented to hospital room, call light, toileting, pain management and safety-teach back done. Patient informed that MEENU will be HIS nurse and that their room number is 118A. Personal belongings checked and Belongings List documented. Call light within reach. Addendum: 08/21/19 at 0751 by Tina Asif RN NOTE INTENDED FOR DIFFERENT PATIENT
[2019-08-20] MEDS: DOCUSATE SODIUM 100 MG CAPSULE PO SCH (21:02)
--- NOTE | 2019-08-20 21:30 | NUR ---
NOTES: due medications given. still occ. bouts of nonproductive cough. pt. needs attended.
--- NOTE | 2019-08-20 23:00 | NUR ---
NOTES: pt. been sleeping when checked. condition unchanged.
[2019-08-20 23:27] VITALS: BP_SYST 116
[2019-08-21] MEDS: INSULIN REGULAR, HUMAN 100 UNITS/ML, 10 ML VIAL (humuLIN R) SUBCUT PRN ×4 (00:13→17:44)
--- NOTE | 2019-08-21 00:30 | NUR ---
NOTES; BS checked 384 with sliding scale coverage given. IVF continuous.
--- NOTE | 2019-08-21 01:30 | NUR ---
NOTES: pt. woke up thinking its already am. pt. wet, changed pad and devin care. sacral wound dressing intact. kept warm and comfortable, repositioned.
--- NOTE | 2019-08-21 03:00 | NUR ---
NOTES: condition observed. repositioned. no complaints manifested. pt. sleeping when checked.
[2019-08-21] MEDS: 0.45% NACL 1,000 ML IV SCH (04:16)
--- NOTE | 2019-08-21 05:00 | NUR ---
NOTES: pt. incontinent of urine, kept dry, repositioned after. went back to sleep after. still with occ. bouts of cough.
[2019-08-21] MEDS: guaiFENesin 200 MG/CODEINE 20 MG/ 10 ML UDC PO SCH ×3 (06:31→22:11)
[2019-08-21] MEDS: LEVOTHYROXINE SODIUM 0.075 MG TABLET PO SCH ×2 (06:32→16:36)
[2019-08-21 06:35] LABS: BASOPHILS % (AUTO) 0.1 % (0.0-2.0); HEMATOCRIT 27.3 % (36-54); LYMPHOCYTES # (AUTO) 0.6 K/uL (1.0-5.5); LYMPHOCYTES % (AUTO) 8.2 % (20.5-51.5); MEAN CORPUSCULAR HEMOGLOBIN 30 pg (27-31); MEAN CORPUSCULAR HGB CONC 33 % (32-36); MEAN CORPUSCULAR VOLUME 92 fL (79.0-98.0); MONOCYTES # (AUTO) 0.3 K/uL (0.0-1.0); MONOCYTES % (AUTO) 3.9 % (1.7-9.3); NEUTROPHILS # (AUTO) 6.6 K/uL (1.8-7.7); NEUTROPHILS % (AUTO) 87.8 % (40.0-70.0); PLATELET COUNT (AUTO) 125 K/uL (130-430); RED BLOOD CELL COUNT(AUTO) 2.98 MIL/uL (4.2-6.2); RED CELL DISTRIBUTION WIDTH 21.5 % (9.0-15.0); WHITE BLOOD COUNT (AUTO) 7.5 K/uL (4.8-10.8)
[2019-08-21] MEDS: methylPREDNISolone SOD SUCC/PF 62.5 MG/ML VIAL IVP SCH ×2 (06:37→14:17)
--- NOTE | 2019-08-21 06:49 | NUR ---
CLOSING NOTES; PT. AWAKE, DUE MEDICATIONS GIVEN. BS CHECKED 265 WITH SLIDIING SCALE COVERAGE. IVF PATENT. KEPY o2 2 5 LITERS PER OXIMIZER. FOR FURTHER CARE AND ASSISTANCE. WILL ENDORSE TO DAY SHIFT. CALL LIGHT WITHIN REACH.
[2019-08-21 06:54] LABS: ANION GAP 5 (5-15); CALCIUM 9.5 mg/dL (8.4-11.0); CHLORIDE 104 mmol/L (98-107); CREATININE 1.35 mg/dL (0.55-1.30); GLUCOSE 335 mg/dL (70-99); POTASSIUM 5.4 mmol/L (3.5-5.1); SODIUM SERUM 134 mmol/L (136-145); UREA NITROGEN, BLOOD 57 mg/dL (8-21)
[2019-08-21] MEDS: LevALBUTEROL HCL 1.25 MG/0.5 ML *CONC.* VIAL.NEB (XOPENEX CONC.) INH SCH ×3 (07:36→23:15)
[2019-08-21 08:00] VITALS: BP_SYST 90
--- NOTE | 2019-08-21 08:30 | NUR ---
RECEIVED REPORT FROM MEG.
[2019-08-21 08:35] VITALS: BP_SYST 94
--- NOTE | 2019-08-21 08:35 | NUR ---
ASSESS PT AWAKE, ALERT, AND ORIENTED. FAMILY AT BEDSIDE. NO ACUTE DISTRESS NOTED. NONLABORED BREATHING NOTED. OXYMIZER INTACT AND PATENT. OXYGEN FLOWING ORDERED. TOLERATING WELL. ALL NEEDS MET. CALL LIGHT IN REACH. FALL AND ASPIRATION PRECAUTIONS IN PLACE. CONTINUE TO MONITOR.
[2019-08-21] MEDS: LISINOPRIL 5 MG TABLET PO SCH (09:00)
[2019-08-21] MEDS: BACLOFEN 10 MG TABLET PO SCH (09:00)
[2019-08-21] MEDS: MEGESTROL ACETATE 400 MG/10 ML UDC PO SCH ×2 (09:29→22:11)
[2019-08-21] MEDS: CHOLECALCIFEROL (VITAMIN D3) 2,000 UNIT TABLET PO SCH (09:29)
[2019-08-21] MEDS: DOCUSATE SODIUM 100 MG CAPSULE PO SCH ×2 (09:30→22:22)
[2019-08-21] MEDS: ALLOPURINOL 100 MG TABLET (ZYLOPRIM) PO SCH (09:30)
[2019-08-21] MEDS: CALCIUM CARBONATE/VITAMIN D3 1 TAB TABLET PO SCH ×2 (09:30→22:11)
[2019-08-21] MEDS: glipiZIDE XL 5 MG TAB ( GLUCOTROL XL) PO SCH (09:30)
[2019-08-21] MEDS: MAGNESIUM OXIDE 400 MG TABLET PO SCH ×2 (09:30→22:10)
[2019-08-21] MEDS: CYANOCOBALAMIN 1000 mCg TABLET PO SCH (09:30)
--- NOTE | 2019-08-21 09:30 | NUR ---
IV RE-INSERTION: Complaining of pain to IV site. Restarted on right hand. Successful after 2 attempts. Resumed current IVF of 1/2NS and regulated @ 75ml per hour. Will observe for any signs of infiltration.
[2019-08-21] MEDS: FERROUS SULFATE 142 MG TABLET.ER PO SCH (09:31)
[2019-08-21] MEDS: DOXYCYCLINE HYCLATE 100 MG in D5W 100 ML IV SCH ×2 (09:32→22:22)
--- NOTE | 2019-08-21 09:35 | NUR ---
MEDS ADMINISTERED MEDS ORDERED PER MD. FAMILY AT BEDSIDE. EDUCATION GIVEN TO PT AND FAMILY, PT TOLERATED WELL. HOB ELEVATED. NO ACUTE DISTRESS NOTED. FALL AND ASPIRATION PRECAUTIONS IN PLACE. ALL NEEDS MET. CALL LIGHT IN REACH. CONTINUE TO MONITOR.
[2019-08-21] MEDS: INSULIN GLARGINE 100 UNITS/ML 10 ML VIAL SUBCUT SCH (09:38)
--- NOTE | 2019-08-21 11:30 | NUR ---
ROUNDS PT AWAKE AND ALERT. WATCHING TELEVISION. FAMILY AT BEDSIDE. NO ACUTE DISTRESS NOTED. FAMILY AT BEDSIDE. FALL AND ASPIRATION PRECAUTIONS IN PLACE. ALL NEEDS MET. CALL LIGHT IN REACH. CONTINUE TO MONITOR.
[2019-08-21 12:38] VITALS: BP_SYST 103
--- NOTE | 2019-08-21 13:10 | NUR ---
ASSISTED CHRISTOPHER GREENE WITH WOUND CARE AT BEDSIDE
--- NOTE | 2019-08-21 13:10 | NUR ---
WOUND RE-EVALUATION: Patient was awake, alert, oriented and received in a [place] Bed with an Atmos-Air 9000 mattress. Patient needs some assist to turn in bed. Jerry Score is a 14. Past Medical History: Hypertension, Diabetes Mellitus, lung cancer. Microbiology: Blood culture results 2 in progress. Urine culture results negative. Intrinsic factors that delay wound healing: Diabetes Mellitus, lung cancer, Hypoalbuminemia. Extrinsic factors that delay wound healing: Decreased mobility. Wound Assessment: 1. Coccygeal area: Pressure ulcer, present on admission. Appears to be chronic/stable. Wound bed has 50% yellow tissue, 50% pink tissue. No odor, no drainage. Periwound intact. Surrounding tissue has blanchable red erythema and dark discoloration bilaterally (present on admission). Wound measures 1.2 cm x 0.5 cm. 2. Left buttock: IAD with moisture associated skin damage, present on admission. Wound bed has 100% pink tissue. No odor, no drainage. Periwound intact. Surrounding tissue has blanchable red erythema and dark discoloration on left lateral aspect (present on admission). Wound measures 1.0 cm x 1.0 cm. Recommend: Cleanse wounds with normal saline. Apply Calmoseptine cream to wounds, devin-wounds, and surrounding tissue. Apply Hydrogel to site 1. Cover with Sacral foam dressing. Perform wound care daily, and as needed for dressing soiling or dislodgement. Also recommend continue: Reposition patient side to side only every 2 hours with pillow support. Elevate, off-load and float bilateral heels with one pillow lengthwise under each extremity at all times. Offload pressure areas with pillows for pressure re-distribution. Perform skin care and monitor skin integrity Q shift. Use Calmoseptine cream on moisture susceptible areas QID and PRN for soiling. Place patient on a low air loss mattress.
--- NOTE | 2019-08-21 14:17 | NUR ---
scheduled medications patient resting in bed, caregiver at the bedside, educated on medication uses and side effects, patient verbalized understanding and tolerated well, no other needs at this time, fall/safety precautions in place.
[2019-08-21] MEDS ORDERED: BISACODYL 10 MG/SUPPOSITORY RC PRN (15:30)
[2019-08-21] MEDS ORDERED: BISACODYL 10 MG/SUPPOSITORY RC ONE (15:30)
--- NOTE | 2019-08-21 15:40 | NUR ---
patient off the unit going for a CT.
[2019-08-21] MEDS ORDERED: LACTULOSE 20 GM/30 ML UDC PO ONE (15:45)
--- NOTE | 2019-08-21 16:08 | NUR ---
patient back on unit from CT, in stable condition.
--- NOTE | 2019-08-21 16:42 | NUR ---
ROUTINE MEDS ROUTINE MEDS ADMINISTERED ORDERED PER MD. EDUCATION GIVEN AND TOLERATED WELL. HOB ELEVATED. NO ACUTE DISTRESS NOTED. ALL NEEDS MET. CALL LIGHT IN REACH. CONTINUE TO MONITOR.
[2019-08-21 16:47] VITALS: BP_SYST 96
[2019-08-21] MEDS: TAMSULOSIN HCL 0.4 MG CAP PO SCH (17:36)
[2019-08-21] MEDS: APIXABAN 2.5 MG TABLET PO SCH (17:43)
[2019-08-21] MEDS ORDERED: INSULIN REGULAR, HUMAN 100 UNITS/ML, 10 ML VIAL SUBCUT ONE (18:15)
--- NOTE | 2019-08-21 18:45 | NUR ---
CLOSING NOTES PT AWAKE AND ALERT IN BED. FAMILY AT BEDSIDE. NO ACUTE DISTRESS NOTED. NONLABORED BREATHING. OXYMIZER INTACT AND PATENT. INFUSING OXYGEN ORDERED. TOLERATING WELL. PT CLEAN AND DRY. BED IN LOWEST AND LOCKED POSITION. BED ALARM ON. FALL AND ASPIRATION PRECAUTIONS IN PLACE. CALL LIGHT IN REACH. WILL ENDORSE TO [facility] NURSE TO TRANSFER PT ON TO AIR MATTRESS.
--- NOTE | 2019-08-21 19:30 | NUR ---
OPENING NOTE Received patient is resting in bed, no signs of distress at this time, on 5L O2 Oxymizer. call light within reach, bed alarm on, fall/safety precautions in place. IVF running, dressings c/d/i. Will continue to monitor.
[2019-08-21 20:00] VITALS: BP_SYST 105
[2019-08-21] MEDS: LACTULOSE 20 GM/30 ML UDC PO SCH (22:11)
[2019-08-21] MEDS: methylPREDNISolone SOD SUCC 40 MG/ML VIAL IVP SCH (22:12)
[2019-08-22] VITALS: BP_SYST 112
[2019-08-22] MEDS: INSULIN REGULAR, HUMAN 100 UNITS/ML, 10 ML VIAL (humuLIN R) SUBCUT PRN ×5 (01:46→23:45)
[2019-08-22] MEDS: 0.45% NACL 1,000 ML IV SCH ×2 (01:57→09:35)
[2019-08-22] MEDS: guaiFENesin 200 MG/CODEINE 20 MG/ 10 ML UDC PO SCH ×3 (06:25→21:15)
[2019-08-22] MEDS: LEVOTHYROXINE SODIUM 0.075 MG TABLET PO SCH ×2 (06:27→17:25)
--- NOTE | 2019-08-22 07:30 | NUR ---
opening note patient is resting in bed, alert and oriented, daughter at the bedside, educated wafer production worker light system and plan of care, patient verbalized understanding, no signs of distress at this time, on 5L o2 Oxymizer, no other needs addressed at this time, brake armed, two side rails up, call light within reach, bed alarm on, fall/safety precautions in place, patient had frequent BMs last night and said that he does not want to take his colace and enulose today.
--- NOTE | 2019-08-22 07:30 | NUR ---
CLOSING NOTE Patient is resting in bed, no signs of distress at this time, on 5L O2 Oxymizer, had many bowel movements throughout shift. call light within reach, bed alarm on, fall/safety precautions in place. IVF running, dressings c/d/i. All needs met throughout shift, will endorse care to oncoming shift in regards to the blood sugar as well.
[2019-08-22] MEDS: LevALBUTEROL HCL 1.25 MG/0.5 ML *CONC.* VIAL.NEB (XOPENEX CONC.) INH SCH ×3 (07:38→23:23)
[2019-08-22 08:00] VITALS: BP_SYST 108
--- NOTE | 2019-08-22 08:03 | NUR ---
CLOSING NOTE Patient is resting in bed, no signs of distress at this time, on 5L O2 Oxymizer, had many bowel movements throughout shift. call light within reach, bed alarm on, fall/safety precautions in place. IVF running, dressings c/d/i. All needs met throughout shift, will endorse care to oncoming shift in regards to the blood sugar as well. Addendum: 08/22/19 at 0804 by Luanne Crews RN WRONG TIME- please disregard
[2019-08-22] MEDS: LACTULOSE 20 GM/30 ML UDC PO SCH ×2 (08:21→21:00)
[2019-08-22] MEDS: DOCUSATE SODIUM 100 MG CAPSULE PO SCH ×2 (08:21→21:00)
[2019-08-22] MEDS: DOXYCYCLINE HYCLATE 100 MG in D5W 100 ML IV SCH ×2 (08:23→21:15)
[2019-08-22] MEDS: FERROUS SULFATE 142 MG TABLET.ER PO SCH (08:23)
[2019-08-22] MEDS: MEGESTROL ACETATE 400 MG/10 ML UDC PO SCH ×2 (08:23→21:11)
[2019-08-22] MEDS: CHOLECALCIFEROL (VITAMIN D3) 2,000 UNIT TABLET PO SCH (08:24)
[2019-08-22] MEDS: methylPREDNISolone SOD SUCC 40 MG/ML VIAL IVP SCH ×2 (08:24→21:16)
[2019-08-22] MEDS: LISINOPRIL 5 MG TABLET PO SCH (08:24)
[2019-08-22] MEDS: CALCIUM CARBONATE/VITAMIN D3 1 TAB TABLET PO SCH ×2 (08:25→21:11)
[2019-08-22] MEDS: ALLOPURINOL 100 MG TABLET (ZYLOPRIM) PO SCH (08:25)
[2019-08-22] MEDS: glipiZIDE XL 5 MG TAB ( GLUCOTROL XL) PO SCH (08:25)
[2019-08-22] MEDS: CYANOCOBALAMIN 1000 mCg TABLET PO SCH (08:25)
[2019-08-22] MEDS: MAGNESIUM OXIDE 400 MG TABLET PO SCH ×2 (08:25→21:11)
[2019-08-22] MEDS: INSULIN GLARGINE 100 UNITS/ML 10 ML VIAL SUBCUT SCH (08:29)
--- NOTE | 2019-08-22 10:00 | NUR ---
rounds patient resting in bed, daughter and caregiver at the bedside, asked me to remind Dr Dudley that when he comes for rounds if he can let them know about the CT chest results, no other needs at this time, no signs of distress at this time, fall/safety precautions in place.
--- NOTE | 2019-08-22 11:17 | NUR ---
PHYSICAL THERAPY CO-SIGN The Physical Therapy Progress Notes documented by Data Steward have been reviewed. Reviewed/Co-Signed by: Demetri Armstrong PT Documentation Done by: VICENTE MA PTA Addendum: 08/22/19 at 1118 by Demetri Armstrong PT Amended: Links added.
[2019-08-22 12:00] VITALS: BP_SYST 111
--- NOTE | 2019-08-22 12:00 | NUR ---
hygiene care patient cleaned after BM with assist, no other needs addressed at this time, no signs of distress at this time, fall/safety precautions in place.
--- NOTE | 2019-08-22 14:30 | NUR ---
hygiene care patient cleaned after BM with assist, no other needs addressed at this time, no signs of distress at this time, fall/safety precautions in place, patient worked with PT, informed Dr Dudley that he was unable to walk.
[2019-08-22 16:16] VITALS: BP_SYST 121
--- NOTE | 2019-08-22 16:45 | NUR ---
rounds patient resting in bed, caregiver at the bedside, no other needs addressed at this time, no signs of distress at this time, fall/safety precautions in place.
[2019-08-22] MEDS: TAMSULOSIN HCL 0.4 MG CAP PO SCH (17:25)
[2019-08-22] MEDS: APIXABAN 2.5 MG TABLET PO SCH (17:27)
--- NOTE | 2019-08-22 18:45 | NUR ---
closing note patient is resting in bed, no signs of distress at this time, on 5L o2 Oxymizer, no other needs addressed at this time, brake armed, two side rails up, call light within reach, bed alarm on, fall/safety precautions in place, patient had frequent BMs last night and said that he does not want to take his colace and enulose at all, will endorse report to [facility] shift nurse to continue with care.
[2019-08-22] MEDS ORDERED: FLU VACC TS2019(65UP)/MF59C/PF 45 MCG/0.5 ML SYRINGE I.M. PRN (19:00)
--- NOTE | 2019-08-22 19:30 | NUR ---
OPENING NOTE Patient is resting in bed, no signs of distress at this time, on 5L O2 Oxymizer. Oriented patient to plan of care and call light use. call light within reach, bed alarm on, fall/safety precautions in place. IVF running, dressings c/d/i. Will continue to monitor.
[2019-08-22 20:00] VITALS: BP_SYST 116
--- NOTE | 2019-08-22 23:00 | NUR ---
Patient is resting, incontinence care provided. No acute respiratory distress observed, 5L oxymizer. Call light within reach, bed alarm on, bed at lowest position.
[2019-08-23] VITALS (7 sets, daily range): BP systolic 94–125
--- NOTE | 2019-08-23 02:11 | NUR ---
Patient is asleep, eyes closed. No signs of distress observed. Will continue to monitor.
--- NOTE | 2019-08-23 04:15 | NUR ---
Patient is resting, Incontinence care provided. No signs of distress observed. Will continue to monitor.
[2019-08-23] MEDS: 0.45% NACL 1,000 ML IV SCH ×2 (05:28→17:06)
[2019-08-23] MEDS: guaiFENesin 200 MG/CODEINE 20 MG/ 10 ML UDC PO SCH ×3 (05:28→21:25)
[2019-08-23] MEDS: INSULIN REGULAR, HUMAN 100 UNITS/ML, 10 ML VIAL (humuLIN R) SUBCUT PRN ×3 (05:35→17:16)
[2019-08-23] MEDS: LEVOTHYROXINE SODIUM 0.075 MG TABLET PO SCH ×2 (06:12→17:07)
--- NOTE | 2019-08-23 06:33 | NUR ---
CLOSING NOTE Patient is resting in bed, no signs of distress at this time, on 5L O2 Oxymizer. Incontinence care provided. Call light within reach, bed alarm on, bed at lowest position. IVF running, dressings c/d/i. All needs met throughout shift. Will endorse care to oncoming shift.
--- NOTE | 2019-08-23 08:00 | NUR ---
Note Pt assisted in sitting up in bed to eat his breakfast. Bedside tray across pt for easy reach. Pt has O2 at 5L/Oxymizer at this time. IV in right hand intact and patent infusing IVF's well. Tele unit attached and intact at this time. Call light within reach. No needs noted.
[2019-08-23] MEDS: LevALBUTEROL HCL 1.25 MG/0.5 ML *CONC.* VIAL.NEB (XOPENEX CONC.) INH SCH ×3 (08:13→23:17)
[2019-08-23] MEDS: DOCUSATE SODIUM 100 MG CAPSULE PO SCH ×2 (08:47→21:24)
[2019-08-23] MEDS: LACTULOSE 20 GM/30 ML UDC PO SCH ×2 (08:47→21:24)
[2019-08-23] MEDS: CYANOCOBALAMIN 1000 mCg TABLET PO SCH (08:54)
[2019-08-23] MEDS: MEGESTROL ACETATE 400 MG/10 ML UDC PO SCH ×2 (08:54→21:25)
[2019-08-23] MEDS: methylPREDNISolone SOD SUCC 40 MG/ML VIAL IVP SCH ×2 (08:54→21:24)
[2019-08-23] MEDS: ALLOPURINOL 100 MG TABLET (ZYLOPRIM) PO SCH (08:55)
[2019-08-23] MEDS: CHOLECALCIFEROL (VITAMIN D3) 2,000 UNIT TABLET PO SCH (08:55)
[2019-08-23] MEDS: MAGNESIUM OXIDE 400 MG TABLET PO SCH ×2 (08:55→21:24)
[2019-08-23] MEDS: glipiZIDE XL 5 MG TAB ( GLUCOTROL XL) PO SCH (08:55)
[2019-08-23] MEDS: LISINOPRIL 5 MG TABLET PO SCH (08:56)
[2019-08-23] MEDS: CALCIUM CARBONATE/VITAMIN D3 1 TAB TABLET PO SCH ×2 (08:56→21:24)
[2019-08-23] MEDS: DOXYCYCLINE HYCLATE 100 MG in D5W 100 ML IV SCH (09:01)
[2019-08-23] MEDS: FERROUS SULFATE 142 MG TABLET.ER PO SCH (09:12)
[2019-08-23] MEDS: INSULIN GLARGINE 100 UNITS/ML 10 ML VIAL SUBCUT SCH (09:14)
--- NOTE | 2019-08-23 11:40 | NUR ---
Note Pt resting in bed. Pt has caregiver at bedside assisting pt with eating meals and taking PO medications with pudding. No needs noted at this time. Pt has O2 on at 4L/Oxymizer. Call light within reach.
--- NOTE | 2019-08-23 14:15 | NUR ---
Note Pt has his and caregiver at bedside at this time at this time assisting him with needs and care. Pt has no needs at this time. Call light within reach. Pt has O2 at 4L/Oxymizer.
--- NOTE | 2019-08-23 16:41 | NUR ---
Nutrition F/U (short note d/t high patient load) RD reviewed pt's current EMR including diet Hx, physician notes, nursing notes, pertinent labs/meds/procedures, care trends, and care activity. Pt has been on CCHO, no lactose diet w/ Glucerna BID and Dexter BID x1 day. Per caregiver at bedside. pt has been eating OK; food preferences noted. Student RT at bedside translated conversation as caregiver is Ukrainian-speaking. Per EMR, PO intake records indicate 70% average x12 meals (improvement since last RD visit) -- pt is likely meeting lower end of estimated caloric needs. Per EMR, D/C planning home in progress. Current diet remains adequate/appropriate.
[2019-08-23] MEDS: TAMSULOSIN HCL 0.4 MG CAP PO SCH (17:07)
[2019-08-23] MEDS: APIXABAN 2.5 MG TABLET PO SCH (17:09)
--- NOTE | 2019-08-23 18:05 | NUR ---
Note Pt sitting up in bed eating his dinner assisted by his caregiver. Pt was checked on q1' and PRN all shift for needs and care. No SOB/resp distress or chest pain/discomfort noted a this time. IV in right hand intact and patent infusing IVF's well. No needs noted at this time. Call light within reach. Pt's daughter and another family member at bedside with pt and his caregiver. Pt stable at this time with O2 at 5L/Oxymizer.
--- NOTE | 2019-08-23 19:15 | NUR ---
change of shift.pt prtest challenges;general weakness.pt's prsts o2 therapy via oximizer cannulae;flow rate noted @6l/min. iv access intact;patent;iv fluids infusing.general status stable.respiratory status;labored.family;dtr's/shell grader@bedside. call light/telephone w/in reach of the pt.
--- NOTE | 2019-08-23 20:00 | NUR ---
pt.assessed.v/s assessed;values w/in normal limits.no c/o pain,nausea.i have apprised the family/hydrogen power plant manager that i may provide snacks/beverages w/in the shift.no requests posited@this hour.pt.assessed for cleanliness.pt.repositioned.general status stable, respiratory status;labored;02-sat%=96%.via oximizer flow rate:6l/min.call light/telephone w/in reach of the pt.
--- NOTE | 2019-08-23 21:00 | NUR ---
2100pmedications administered.pt capable to ingest medications whole w/pudding.no c/o pain,nausea @this hour.
--- NOTE | 2019-08-23 21:30 | NUR ---
present assessed the pt.norris gatica has inquired why the pt.had not been transferred home;08/23/19. i apprised that the pt's home o2 set is limited:can only provides 5l/min flow rate.pt.requires a high flow rate. to order the additional o2 therapy set-up.
--- NOTE | 2019-08-23 22:00 | NUR ---
pt.assessed.pt.assessed for cleanliness.pt.repositioned.no c/o pain,nausea.iv access intact iv fluids infusing.general status stable. respiratory status;labored;02-sat%=96%.call light/telephone placed w/in reach of the pt.
[2019-08-24] VITALS (14 sets, daily range): BP systolic 91–119
--- NOTE | 2019-08-24 | NUR ---
pt.assessed v/s assessed;values w/in normal limits.i have assessed the blood glucose;value;225mg/dl.i have administered insulin;regular;4-units.the pt.had requested medication pain.dr norris hernandez. returened the page.i apprised dr. pisano of pt's requests: ordered ultram;50m g po.q-6hrs/prn. i have administered the ultram.to f/u re;pain medication efficacy per pain mgx protocol.pt. assessed for cleanliness.pt. repositioned.general; status stable.respiratory status labored;o2-sat%=96%.iv fluids access intact;patent iv fluids infusing.call light/telephone placed w/in reach of the pt.
[2019-08-24] MEDS: traMADol HCL HCL 50 MG TABLET (ULTRAM) PO PRN ×3 (00:05→22:17)
[2019-08-24] MEDS: INSULIN REGULAR, HUMAN 100 UNITS/ML, 10 ML VIAL (humuLIN R) SUBCUT PRN ×4 (00:08→18:21)
[2019-08-24] MEDS: 0.45% NACL 1,000 ML IV SCH ×3 (01:35→21:12)
--- NOTE | 2019-08-24 02:00 | NUR ---
pt.assessed.pt.presents quiescent affect;calm,somnolent.per flacc;pain mgx;pt.absent facial grimaces/body posturing.respiratory status;labored;o2-sat%=96%.general status stable.pt.assessed for cleanliness.pt.repositioned.iv access intact;patent iv fluids infusing.call light./telephone w/in the reach of the pt.
--- NOTE | 2019-08-24 04:00 | NUR ---
pt.assessed.pt.presents quiescent affect;calm,somnolent.pt assessed for cleanliness.pt.repositioned.iv access intact;patent iv fluids infusing.general status stable.respiratory status;labored;02-sat=96%.call light/telephone w/in reach of the pt.
[2019-08-24] MEDS: guaiFENesin 200 MG/CODEINE 20 MG/ 10 ML UDC PO SCH ×3 (05:46→21:20)
[2019-08-24] MEDS: LEVOTHYROXINE SODIUM 0.075 MG TABLET PO SCH ×2 (05:46→17:00)
--- NOTE | 2019-08-24 06:02 | NUR ---
pt.assessed.i have assessed the blood glucose;value;273mg/dl.i have administered insulin;6-units.i have administered robitussin; synthroid 0700a dose.pt.assessed for cleanliness.pt.repositioned.general status.stable.respiratory status;labored;o2-sat %=96%. call light/ telephone placed w/in reach of the pt./material handler floorperson present w/in the entire shift.
--- NOTE | 2019-08-24 06:45 | NUR ---
I HAVE ADMINISTERED ULTRAM;50MG PO 1 TAB PT AHD C/O PAIN;SACRUM:LOCATION.TO RE-ASS ES THE PAIN MEDICATION EFFICACY PER PAIN MGX PROTOCOL.
[2019-08-24 06:53] LABS: MEAN CORPUSCULAR HEMOGLOBIN 30 pg (27-31); MEAN CORPUSCULAR HGB CONC 32 % (32-36)
[2019-08-24 06:55] LABS: ANION GAP 4 (5-15); CALCIUM 9.9 mg/dL (8.4-11.0); CHLORIDE 103 mmol/L (98-107); CREATININE 1.14 mg/dL (0.55-1.30); GLUCOSE 278 mg/dL (70-99); SODIUM SERUM 132 mmol/L (136-145); UREA NITROGEN, BLOOD 65 mg/dL (8-21)
[2019-08-24 07:10] LABS: POTASSIUM 6.5 mmol/L (3.5-5.1)
[2019-08-24 07:11] LABS: HEMATOCRIT 31.2 % (36-54); HEMOGLOBIN 9.9 g/dL (14.0-18.0); MEAN CORPUSCULAR VOLUME 93 fL (79.0-98.0); RED BLOOD CELL COUNT(AUTO) 3.36 MIL/uL (4.2-6.2); WHITE BLOOD COUNT (AUTO) 11.2 K/uL (4.8-10.8)
[2019-08-24 07:12] LABS: PLATELET COUNT (AUTO) 124 K/uL (130-430); RED CELL DISTRIBUTION WIDTH 21.3 % (9.0-15.0)
[2019-08-24 07:37] LABS: ATYPICAL LYMPHOCYTES % 0 % (0-0); BASOPHILS % (MANUAL) 0 % (0-2); EOSINOPHILS % (MANUAL) 0 % (0-7); LYMPHOCYTES % (MANUAL) 6 % (20-46); MONOCYTES % (MANUAL) 3 % (0-11)
[2019-08-24 07:38] LABS: BAND % (MANUAL) 9 % (0-6)
--- NOTE | 2019-08-24 08:00 | NUR ---
Note Pt drowsy, but easily arousable. Pt has O2 at 6L/Oxymizer. Pt has tele unit attached and intact at this time. IV in right forearm intact and patent infusing IVF's well. Pt's at bedside at this time. She spent the night. Pt will be fed breakfast, when he is more awake and alert. Call light within reach.
[2019-08-24] MEDS: LevALBUTEROL HCL 1.25 MG/0.5 ML *CONC.* VIAL.NEB (XOPENEX CONC.) INH SCH ×3 (08:01→20:47)
--- NOTE | 2019-08-24 08:02 | NUR ---
PHYSICAL THERAPY CO-SIGN The Physical Therapy Progress Notes documented by Prekindergarten Teacher have been reviewed. Reviewed/Co-Signed by: Demetri Armstrong PT Documentation Done by: HERRERA HEDZ PTA Addendum: 08/24/19 at 0804 by Demetri Armstrong PT Amended: Links added.
--- NOTE | 2019-08-24 08:03 | NUR ---
PHYSICAL THERAPY CO-SIGN The Physical Therapy Progress Notes documented by Hospital Librarian have been reviewed. Reviewed/Co-Signed by: Demetri Armstrong PT Documentation Done by: HERRERA HDEZ PTA Addendum: 08/24/19 at 0804 by Demetri Armstrong PT Amended: Links added.
--- NOTE | 2019-08-24 08:08 | NUR ---
ATTENDING MD DR CUMMINGS WAS PAGED , RE: CRITICAL LABS.
[2019-08-24] MEDS ORDERED: SODIUM POLYSTYRENE SULFONATE 15 GM/60 ML UDBTL PO ONE ×2 (08:45→19:30)
[2019-08-24] MEDS: DOCUSATE SODIUM 100 MG CAPSULE PO SCH ×2 (09:00→21:14)
[2019-08-24] MEDS: LACTULOSE 20 GM/30 ML UDC PO SCH ×2 (09:00→21:13)
[2019-08-24] MEDS: MEGESTROL ACETATE 400 MG/10 ML UDC PO SCH ×2 (09:38→21:13)
[2019-08-24] MEDS: CHOLECALCIFEROL (VITAMIN D3) 2,000 UNIT TABLET PO SCH (09:39)
[2019-08-24] MEDS: glipiZIDE XL 5 MG TAB ( GLUCOTROL XL) PO SCH (09:39)
[2019-08-24] MEDS: MAGNESIUM OXIDE 400 MG TABLET PO SCH ×2 (09:39→21:14)
[2019-08-24] MEDS: FERROUS SULFATE 142 MG TABLET.ER PO SCH (09:39)
[2019-08-24] MEDS: CYANOCOBALAMIN 1000 mCg TABLET PO SCH (09:39)
[2019-08-24] MEDS: CALCIUM CARBONATE/VITAMIN D3 1 TAB TABLET PO SCH ×2 (09:39→21:00)
[2019-08-24] MEDS: LISINOPRIL 5 MG TABLET PO SCH (09:39)
[2019-08-24] MEDS: ALLOPURINOL 100 MG TABLET (ZYLOPRIM) PO SCH (09:39)
[2019-08-24] MEDS: methylPREDNISolone SOD SUCC 40 MG/ML VIAL IVP SCH ×2 (09:40→21:14)
[2019-08-24] MEDS ORDERED: SODIUM POLYSTYRENE SULFONATE 15 GM/60 ML UDBTL ONE (09:48)
[2019-08-24] MEDS: INSULIN GLARGINE 100 UNITS/ML 10 ML VIAL SUBCUT SCH (09:48)
--- NOTE | 2019-08-24 11:26 | NUR ---
P.T. NOTES PATIENT UNABLE TO PARTICIPATE W/ P.T. TODAY, FEELING WEAK/TIRED AND WOULD LIKE TO GET SOME REST, PATIENT ON O2/6L.
--- NOTE | 2019-08-24 11:41 | NUR ---
Social Service/Discharge Planning Note: BREWERY PUMPER placed call to pt's dtr, Rossy Marques ([phone]); to discuss dc plans. Pt's dtr states that she wants the pt to come home. Pt's dtr reports that pt's oxygen is set up with [facility]; pt's dtr reports that pt's home concentrator is only for 5L oxygen but pt is getting 6L in the hospital; Rossy Marques states that pt needs a different concentrator to supply the correct oxygen. Rossy Marques also states that pt is on service with [facility]. Pt's dtr states that she wants pt to have an air mattress at home; Rossy Marques states that pt does have a hospital bed at home but it has a regular mattress on it. 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 BREWERY PUMPER spoke with pt's dtr, Rossy Marques about hospice services. Pt's dtr states that she would like more information on Hospice from an agency to see if Hospice would be more appropriate for pt. BREWERY PUMPER explained hospice services and dtr would like to speak to a hospice agency to discuss taking pt home on hospice. Pt's dtr does not have a preference of hospice agency. BREWERY PUMPER spoke with pt's nurse to alert her of conversation with pt's dtr. BREWERY PUMPER has asked to be contacted when physician shows up to speak with the physician about ordering a hospice evaluation. Pt's dtr states that she will be working until 6:30pm but can take a phone call from a hospice agency to discuss their services. BREWERY PUMPER will remain available for support and will follow up with physician to ask for hospice evaluation.
--- NOTE | 2019-08-24 12:00 | NUR ---
Note Pt resting in bed, having breathing treatments and is being suctioned at this time. Cely DORANTES spoke to pt's daughter and will be calling Dr Dudley about Hospice. Pt's O2 sats was going down and O2 increased to 8L/Oxymizer. Addendum: 08/24/19 at 1203 by Eden Duque RN Call out to Dr Garcia for transfer to ICU as pt now being put on non-rebreather mask.
--- NOTE | 2019-08-24 12:06 | NUR ---
ATTENDING MD DR CUMMINGS WAS CALLED DIRECTLY, RE: ORDER TO TRANSFER TO ICU.
--- NOTE | 2019-08-24 12:20 | NUR ---
Note Dr Dudley spoke to Rhiannon sainz RN and order for transfer to ICU given. Pt was moved to ICU and report given to Fay EQUIPMENT RECORDS SUPERVISOR. All belongings taken to pt's ICU room. Pt's caregiver went with pt to ICU. Pt's daughter Rossy was called and message left on her cell phone number. Waiting for call back. Addendum: 08/24/19 at 1245 by Eden Duque RN Pt's tele unit was dc'd and returned to monitor worker.
--- NOTE | 2019-08-24 12:25 | NUR ---
TO ICU. PT ON NON REBREATHER MASK AT 15L, PT OPENS HIS EYES TO VERBAL COMMAND, HEAD OF BED AT 40 DEGREE ANGLE, IVF INFUSING 1/2 NS AT 75 ML PER HR THRU RIGHT WRIST, O2 SAT 100% ON THE MONITOR.
--- NOTE | 2019-08-24 12:28 | NUR ---
O2. R.T. AT BEDSIDE, REPORT OF ABG ON HAND, R.T. SWITCHED O2 TO OXYMIZER AT 6L.
--- NOTE | 2019-08-24 12:46 | NUR ---
XRAY. PORTABLE CHEST XRAY DONE.
[2019-08-24] MEDS ORDERED: FUROSEMIDE 40 MG/4 ML VIAL IVP ONE (14:15)
[2019-08-24] MEDS ORDERED: metroNIDAZOLE 500 mg/NS 100 ML IV ONE (15:00)
--- NOTE | 2019-08-24 15:30 | NUR ---
RUBIO CATHETER # 16 FR Rubio catheter with 10 cc bulb inserted with use of sterile technique. Bulb inflated with 10 cc sterile water. Immediate return of 30 cc urine noted. Bedside drainage bag placed below level of bladder. Pt tolerated procedure well.
--- NOTE | 2019-08-24 15:40 | NUR ---
IV. NOTED PT'S IV IN RIGHT WRIST LEAKING WHEN HE WAS TURNED TO HIS SIDE, ATTEMPTED TO INSERT AN IV, PT'S DAUGHTER DECLINED, SHE SUGGESTED ABOUT USING A PICC, "HIS ARMS HAVE BEEN POKED", SHE COMPLAINED.
--- NOTE | 2019-08-24 15:58 | NUR ---
DC PLANNING SPOKE WITH DR CUMMINGS ORDERED FOR HOSPICE EVALUATION. AIRFRAME TECHNICAL OFFICER AWARE.
--- NOTE | 2019-08-24 16:14 | NUR ---
PICC. NEW ORDERS RECEIVED FROM . PT'S DAUGHTER CONSENTED ON PLACING A PICC.
--- NOTE | 2019-08-24 16:34 | NUR ---
Social Service Note: NIGHT TIME BABYSITTER met with pt's dtr in ICU; pt's dtr does want hospice evaluation. NIGHT TIME BABYSITTER had spoken to physician who is agreeable to hospice evaluation. Physician has suggested [facility]. NIGHT TIME BABYSITTER spoke with pt's dtr who states that she does not have a preference and would like to go with a company that the doctor suggests. CARMELO has faxed order and pt's information to [facility] ([phone] [phone]). NIGHT TIME BABYSITTER will remain available for support.
[2019-08-24 17:26] LABS: ANION GAP 3 (5-15); CALCIUM 10.6 mg/dL (8.4-11.0); CHLORIDE 101 mmol/L (98-107); CREATININE 1.22 mg/dL (0.55-1.30); GLUCOSE 287 mg/dL (70-99); SODIUM SERUM 128 mmol/L (136-145); UREA NITROGEN, BLOOD 68 mg/dL (8-21)
[2019-08-24 17:30] LABS: INR 1.1 (0.80-1.20); PROTHROMBIN TIME 10.9 SECS (9.5-12.5)
[2019-08-24] MEDS: APIXABAN 2.5 MG TABLET PO SCH (18:00)
[2019-08-24] MEDS: TAMSULOSIN HCL 0.4 MG CAP PO SCH (18:00)
[2019-08-24 18:51] LABS: POTASSIUM 5.9 mmol/L (3.5-5.1)
[2019-08-24] MEDS ORDERED: ALBUTEROL SULFATE 0.083% 2.5 MG/3 ML VIAL.NEB INH SCH (19:00)
--- NOTE | 2019-08-24 19:20 | NUR ---
OPENING NOTE SBAR REPORT RECEIVED FROM WILMA WHITE. CARE ASSUMED. PT LAYING IN BED. ANO X 4. PT ON 6L OXYMIZER. O2 SATURATION 89%. RESPIRATIONS EVEN BUT LABORED. RT AT BEDSIDE EVALUATING PATIENT. PT SINUS TACHYCARDIA ON MONITOR. RADIAL AND PEDAL PULSES NORMAL. 1+ PITTING EDEMA NOTED TO BILATERAL LOWER EXTREMITIES. PT HAS 20 G IV TO RIGHT FOREARM SALINE LOCKED. ATTEMPTED TO FLUSH IV. UNABLE TO FLUSH FLUID LEAKING FROM CATHETER SITE. IV DISCONTINUED. PICC LINE PENDING. PT ABDOMEN SOFT NONDISTENDED. BOWEL SOUNDS ACTIVE. RUBIO CATHETER FLOWING TO GRAVITY IN PLACE. URINE YELLOW AND CLEAR. WOUNDS AND REDNESS TO SACRUM AND BUTTOCKS NOTED. DAUGHTER AND GRANDCHILDREN AT BEDSIDE. BED LOCKED IN LOWEST POSITION. SAFETY PRECAUTIONS IN PLACE. CALL LIGHT WITHIN REACH. WILL CONTINUE TO MONITOR.
--- NOTE | 2019-08-24 19:25 | NUR ---
ELEV K LEVEL. REPORTED TO DR CUMMINGS ON PT'S LOW O2 SAT AND HEART RATE IN THE 100'S, ASKED MD IF HE WANTS TO CHANGE O2 DEVICE, HE SAID NO, "THAT'S HOW HE IS GOING TO BE". ALSO REPORTED PT'S K LEVEL 5.9, NEW ORDERS RECEIVED.
--- NOTE | 2019-08-24 20:30 | NUR ---
IV RE-INSERTION: IV site leaking. Restarted on LAC. Successful after 2 attempts with 20ga angiocath. Resumed current IVF. Will observe for any signs of infiltration.
--- NOTE | 2019-08-24 20:45 | NUR ---
RN UPDATE MD GANDHI PAGED DUE TO PT HAVING SEVERE SOB. AWAITING CALL BACK. WILL CONTINUE TO MONITOR.
[2019-08-24] MEDS: IPRATROPIUM BROM 0.5 MG/2.5 ML VIAL.NEB (ATROVENT) INH SCH (20:47)
--- NOTE | 2019-08-24 21:00 | NUR ---
MD UPDATE DR. GANDHI CALLED BACK. UPDATED MD ON CONDITION. PT WILL BE PLACED ON HIGH FLOW O2. ORDERS UPDATED. WILL CONTINUE TO MONITOR.
--- NOTE | 2019-08-24 21:00 | NUR ---
RN UPDATE PT PLACED ON HIGH FLOW O2 ON 40L FiO2 100%. PT SATURATING 97%. PT TOLERATING WELL. WILL CONTINUE TO MONITOR.
[2019-08-24] MEDS: metroNIDAZOLE 500 mg/NS 100 ML IV SCH (21:13)
[2019-08-24] MEDS: LEVOFLOXACIN 500 MG/D5W 100 ML IV SCH (21:13)
--- NOTE | 2019-08-24 21:30 | NUR ---
RN UPDATE ATTEMPTED TO ADMINISTER FLUID THROUGH 20G IV IN LEFT AC. FLUID LEAKING FROM CATHETER SITE. UNABLE TO FLUSH LINE. IV D/C'D. AWAITING PICC LINE. WILL CONTINUE TO MONITOR.
--- NOTE | 2019-08-24 22:30 | NUR ---
RN UPDATE PICC LINE RN REBEKAH AT BEDSIDE. TIME OUT PERFORMED. PROCEDURE COMMENCED.
--- NOTE | 2019-08-24 23:00 | NUR ---
PICC LINE INSERTED. PICC LINE RN COMPLETED PROCEDURE. AWAITING CXR FOR PLACEMENT. PT TOLERATED PROCEDURE WELL WILL CONTINUE TO MONITOR.
--- NOTE | 2019-08-24 23:20 | NUR ---
PICC LINE OK TO USE. PICC LINE CHRISTOPHER WELCH STATES PICC LINE OK TO USE. WILL BEGIN TO INFUSE FLUIDS AND BEGIN IV ANTIBIOTICS. WILL CONTINUE TO MONITOR.
[2019-08-25] VITALS (24 sets, daily range): BP systolic 90–116
[2019-08-25] MEDS: INSULIN REGULAR, HUMAN 100 UNITS/ML, 10 ML VIAL (humuLIN R) SUBCUT PRN ×4 (00:19→18:18)
[2019-08-25] MEDS: IPRATROPIUM BROM 0.5 MG/2.5 ML VIAL.NEB (ATROVENT) INH SCH ×4 (02:01→20:29)
[2019-08-25] MEDS: LevALBUTEROL HCL 1.25 MG/0.5 ML *CONC.* VIAL.NEB (XOPENEX CONC.) INH SCH ×4 (02:01→20:28)
[2019-08-25] MEDS: guaiFENesin 200 MG/CODEINE 20 MG/ 10 ML UDC PO SCH ×3 (05:24→21:47)
[2019-08-25] MEDS: metroNIDAZOLE 500 mg/NS 100 ML IV SCH ×3 (05:25→21:53)
[2019-08-25 05:47] LABS: BASOPHILS # (AUTO) 0.1 K/uL (0.0-0.2); BASOPHILS % (AUTO) 0.5 % (0.0-2.0); EOSINOPHILS % (AUTO) 0.1 % (0.0-4.0); HEMATOCRIT 31.5 % (36-54); HEMOGLOBIN 10.2 g/dL (14.0-18.0); LYMPHOCYTES # (AUTO) 0.6 K/uL (1.0-5.5); LYMPHOCYTES % (AUTO) 5.4 % (20.5-51.5); MEAN CORPUSCULAR HEMOGLOBIN 30 pg (27-31); MEAN CORPUSCULAR HGB CONC 32 % (32-36); MEAN CORPUSCULAR VOLUME 92 fL (79.0-98.0); MONOCYTES # (AUTO) 0.5 K/uL (0.0-1.0); NEUTROPHILS # (AUTO) 9.6 K/uL (1.8-7.7); PLATELET COUNT (AUTO) 139 K/uL (130-430); RED BLOOD CELL COUNT(AUTO) 3.41 MIL/uL (4.2-6.2); RED CELL DISTRIBUTION WIDTH 21.9 % (9.0-15.0); WHITE BLOOD COUNT (AUTO) 10.8 K/uL (4.8-10.8)
[2019-08-25] MEDS: LEVOTHYROXINE SODIUM 0.075 MG TABLET PO SCH ×2 (06:06→16:17)
[2019-08-25 06:17] LABS: ALANINE AMINOTRANSFERASE 37 U/L (12-78); ALBUMIN 1.7 g/dL (3.4-4.8); ANION GAP 2 (5-15); ASPARTATE AMINOTRANSFERASE 23 U/L (10-37); BILIRUBIN,DIRECT 0.2 mg/dL (0.0-0.3); CALCIUM 10.2 mg/dL (8.4-11.0); CHLORIDE 102 mmol/L (98-107); CREATININE 1.17 mg/dL (0.55-1.30); GLUCOSE 242 mg/dL (70-99); SODIUM SERUM 131 mmol/L (136-145); TOTAL BILIRUBIN 0.6 mg/dL (0.0-1.0); UREA NITROGEN, BLOOD 74 mg/dL (8-21)
[2019-08-25] MEDS: MENTHOL/ZINC OXIDE 113 GM OINT. TP PRN ×2 (06:18→21:55)
[2019-08-25 06:31] LABS: POTASSIUM 5.8 mmol/L (3.5-5.1)
[2019-08-25] MEDS: traMADol HCL HCL 50 MG TABLET (ULTRAM) PO PRN ×2 (06:38→13:44)
--- NOTE | 2019-08-25 07:19 | NUR ---
CLOSING NOTE PT LAYING IN BED SLEEPING. PT ON HIGH FLOW O2 @ 35L AND FiO2 80%. PT SATURATING AT 97%. NO SIGNS OR SYMPTOMS OF DISTRESS NOTED. SBAR REPORT GIVEN TO DAYANARA WHITE. CARE ENDORSED.
--- NOTE | 2019-08-25 07:30 | NUR ---
Opening Note Patient received sleeping with caregiver at bedside, no signs of distress noted. Patient on high flow 80% breathing evenly and unlabored. Patient has a PICC line receiving fluids. Patient has a ledesma catheter draining yellow urine. Skin non-intact. Safety precautions enforced. Call light within reach.
[2019-08-25] MEDS: DOCUSATE SODIUM 100 MG CAPSULE PO SCH ×2 (08:28→21:44)
[2019-08-25] MEDS: MAGNESIUM OXIDE 400 MG TABLET PO SCH ×2 (08:28→21:47)
[2019-08-25] MEDS: MEGESTROL ACETATE 400 MG/10 ML UDC PO SCH ×2 (08:28→21:47)
[2019-08-25] MEDS: LACTULOSE 20 GM/30 ML UDC PO SCH ×2 (08:28→21:47)
[2019-08-25] MEDS: methylPREDNISolone SOD SUCC 40 MG/ML VIAL IVP SCH ×2 (08:28→21:55)
[2019-08-25] MEDS: CHOLECALCIFEROL (VITAMIN D3) 2,000 UNIT TABLET PO SCH (08:29)
[2019-08-25] MEDS: CYANOCOBALAMIN 1000 mCg TABLET PO SCH (08:29)
[2019-08-25] MEDS: ALLOPURINOL 100 MG TABLET (ZYLOPRIM) PO SCH (08:29)
[2019-08-25] MEDS: FERROUS SULFATE 142 MG TABLET.ER PO SCH (08:30)
--- NOTE | 2019-08-25 10:05 | NUR ---
RT Note: 0834 Pt taken of breathing treatment and placed back on High-flow nasal cannula of 35LPM and 80% FiO2. Titrated FiO2 down to 75%. Will continue to monitor SpO2 and titrate FiO2 appropriately. CHRISTOPHER Krueger at bedside and aware of the changes. 1004 Titrated FiO2 down to 70%. Pt tolerating well SpO2 is at 97%. Will continue to monitor SpO2. CHRISTOPHER Krueger made aware. Addendum: 08/25/19 at 1059 by Kim Palumbo RT Amended: Links added.
--- NOTE | 2019-08-25 12:00 | NUR ---
RN Rounds Patient resting at this time with no signs of distress noted. Patient does not complain of pain.
--- NOTE | 2019-08-25 12:07 | NUR ---
RN Update Informed Dr. Dudley regarding patient coughing while eating. No new orders received.
[2019-08-25] MEDS: LISINOPRIL 5 MG TABLET PO SCH (12:15)
[2019-08-25] MEDS: CALCIUM CARBONATE/VITAMIN D3 1 TAB TABLET PO SCH ×2 (12:16→21:47)
[2019-08-25] MEDS: 0.45% NACL 1,000 ML IV SCH (13:30)
--- NOTE | 2019-08-25 14:00 | NUR ---
CHG CHG bath and linens changed. Patient tolerated well.
--- NOTE | 2019-08-25 14:10 | NUR ---
Wound Care Wound care performed per MD order. Patient tolerated procedure well. Patient medicated prior to procedure. Patient noted to be coughing.
[2019-08-25] MEDS: LEVOFLOXACIN 500 MG/D5W 100 ML IV SCH (15:13)
[2019-08-25] MEDS ORDERED: SODIUM POLYSTYRENE SULFONATE 15 GM/60 ML UDBTL PO ONE (15:30)
--- NOTE | 2019-08-25 16:00 | NUR ---
RN Rounds Patient resting at this time. No signs of distress noted.
[2019-08-25] MEDS: TAMSULOSIN HCL 0.4 MG CAP PO SCH (18:19)
[2019-08-25] MEDS: APIXABAN 2.5 MG TABLET PO SCH (18:22)
--- NOTE | 2019-08-25 19:15 | NUR ---
Closing Note Patient endorsed to fast food shift supervisor RN using SBAR format. Patient in no signs of distress at this time.
--- NOTE | 2019-08-25 19:20 | NUR ---
OPENING NOTE SBAR REPORT RECEIVED FROM DAYANARA WHITE. CARE ASSUMED. PT LAYING IN BED. ANO X 4. PT ON HIGH FLOW O2 AT 35 L @ 70% FiO2. PT SINUS TACHYCARDIA ON MONITOR. RADIAL AND PEDAL PULSES NORMAL. 1+ PITTING EDEMA NOTED TO BILATERAL LOWER EXTREMITIES. PT HAS PICC LINE TO RIGHT UPPER EXTREMITY RUNNING 1/2 NS @ 50 ML/HR. PT ABDOMEN SOFT NONDISTENDED. BOWEL SOUNDS ACTIVE. RUBIO CATHETER FLOWING TO GRAVITY IN PLACE. URINE YELLOW AND CLEAR. WOUNDS AND REDNESS TO SACRUM AND BUTTOCKS NOTED. DAUGHTER AT BEDSIDE. BED LOCKED IN LOWEST POSITION. SAFETY PRECAUTIONS IN PLACE. CALL LIGHT WITHIN REACH. WILL CONTINUE TO MONITOR.
[2019-08-25] MEDS: MORPHINE 2 MG/ML INJ. SYRINGE IVP PRN (21:52)
--- NOTE | 2019-08-25 23:00 | NUR ---
ROUNDS. DR. CUMMINGS AT BEDSIDE. ORDERS UPDATED. WILL CONTINUE TO MONITOR.
[2019-08-26] VITALS (23 sets, daily range): BP systolic 95–132
[2019-08-26] MEDS: INSULIN REGULAR, HUMAN 100 UNITS/ML, 10 ML VIAL (humuLIN R) SUBCUT PRN ×4 (00:15→17:59)
[2019-08-26] MEDS: IPRATROPIUM BROM 0.5 MG/2.5 ML VIAL.NEB (ATROVENT) INH SCH ×4 (01:24→20:52)
[2019-08-26] MEDS: LevALBUTEROL HCL 1.25 MG/0.5 ML *CONC.* VIAL.NEB (XOPENEX CONC.) INH SCH ×4 (01:24→20:52)
[2019-08-26] MEDS: 0.45% NACL 1,000 ML IV SCH (02:35)
[2019-08-26] MEDS: MENTHOL/ZINC OXIDE 113 GM OINT. TP PRN (03:00)
[2019-08-26 06:00] LABS: BASOPHILS % (AUTO) 0.2 % (0.0-2.0); EOSINOPHILS % (AUTO) 0.2 % (0.0-4.0); HEMATOCRIT 31.1 % (36-54); HEMOGLOBIN 10.2 g/dL (14.0-18.0); LYMPHOCYTES # (AUTO) 0.6 K/uL (1.0-5.5); LYMPHOCYTES % (AUTO) 5.5 % (20.5-51.5); MEAN CORPUSCULAR HEMOGLOBIN 30 pg (27-31); MEAN CORPUSCULAR HGB CONC 33 % (32-36); MEAN CORPUSCULAR VOLUME 91 fL (79.0-98.0); MONOCYTES # (AUTO) 0.4 K/uL (0.0-1.0); MONOCYTES % (AUTO) 3.3 % (1.7-9.3); NEUTROPHILS # (AUTO) 9.9 K/uL (1.8-7.7); NEUTROPHILS % (AUTO) 90.8 % (40.0-70.0); PLATELET COUNT (AUTO) 135 K/uL (130-430); RED CELL DISTRIBUTION WIDTH 21.7 % (9.0-15.0); WHITE BLOOD COUNT (AUTO) 10.9 K/uL (4.8-10.8)
[2019-08-26 06:16] LABS: ALANINE AMINOTRANSFERASE 36 U/L (12-78); ALBUMIN 1.7 g/dL (3.4-4.8); ANION GAP 3 (5-15); ASPARTATE AMINOTRANSFERASE 28 U/L (10-37); CALCIUM 9.6 mg/dL (8.4-11.0); CHLORIDE 105 mmol/L (98-107); CREATININE 1.16 mg/dL (0.55-1.30); GLUCOSE 264 mg/dL (70-99); POTASSIUM 5.1 mmol/L (3.5-5.1); SODIUM SERUM 136 mmol/L (136-145); TOTAL BILIRUBIN 0.5 mg/dL (0.0-1.0); UREA NITROGEN, BLOOD 67 mg/dL (8-21)
[2019-08-26] MEDS: LEVOTHYROXINE SODIUM 0.075 MG TABLET PO SCH ×2 (06:29→17:58)
[2019-08-26] MEDS: guaiFENesin 200 MG/CODEINE 20 MG/ 10 ML UDC PO SCH ×3 (06:29→22:10)
[2019-08-26] MEDS: traMADol HCL HCL 50 MG TABLET (ULTRAM) PO PRN ×3 (06:30→22:36)
[2019-08-26] MEDS: metroNIDAZOLE 500 mg/NS 100 ML IV SCH ×3 (06:30→22:35)
--- NOTE | 2019-08-26 07:15 | NUR ---
Opening Note Patient report received via SBAR from [facility] nurse
[2019-08-26] MEDS: MORPHINE 2 MG/ML INJ. SYRINGE IVP PRN ×2 (07:34→15:17)
--- NOTE | 2019-08-26 08:08 | NUR ---
MEDICATION SCAN NOT COMPLETE MORPHINE VIAL SHOWED TO CHARGE DAY SHIFT UNABLE TO SCAN MEDICATION TO PROPER HOUR OF ADMINISTRATION @ 0245. MMORPHINE ADMINISTERED 0.5ML. O.5 ML WASTED WITH CRNA
--- NOTE | 2019-08-26 08:09 | NUR ---
MEDICATION. WITNESSED WASTAGE OF MEDICATION MORPHINE BY CELL SUPPORT OPERATORAPPLICATION SUPPORT DEVELOPER, VIAL PLACED INTO PROPER CONTAINER FOR DISPOSAL.
[2019-08-26] MEDS: MEGESTROL ACETATE 400 MG/10 ML UDC PO SCH ×2 (09:04→22:10)
[2019-08-26] MEDS: SODIUM POLYSTYRENE SULFONATE 15 GM/60 ML UDBTL PO SCH ×2 (09:04→22:13)
[2019-08-26] MEDS: LACTULOSE 20 GM/30 ML UDC PO SCH ×2 (09:04→22:10)
[2019-08-26] MEDS: methylPREDNISolone SOD SUCC 40 MG/ML VIAL IVP SCH ×2 (09:04→22:12)
[2019-08-26] MEDS: CHOLECALCIFEROL (VITAMIN D3) 2,000 UNIT TABLET PO SCH (09:05)
[2019-08-26] MEDS: FERROUS SULFATE 142 MG TABLET.ER PO SCH (09:05)
[2019-08-26] MEDS: CYANOCOBALAMIN 1000 mCg TABLET PO SCH (09:05)
[2019-08-26] MEDS: ALLOPURINOL 100 MG TABLET (ZYLOPRIM) PO SCH (09:05)
[2019-08-26] MEDS: CALCIUM CARBONATE/VITAMIN D3 1 TAB TABLET PO SCH ×2 (09:06→22:11)
[2019-08-26] MEDS: DOCUSATE SODIUM 100 MG CAPSULE PO SCH ×2 (09:06→22:10)
[2019-08-26] MEDS: MAGNESIUM OXIDE 400 MG TABLET PO SCH ×2 (09:06→22:12)
[2019-08-26] MEDS: LISINOPRIL 5 MG TABLET PO SCH (09:06)
[2019-08-26] MEDS: BISACODYL 10 MG/SUPPOSITORY RC SCH (09:07)
--- NOTE | 2019-08-26 10:00 | NUR ---
Round Dr. Hillman at bedside assessing patient, physician entered orders
--- NOTE | 2019-08-26 12:30 | NUR ---
Nursing Note Patient had small bowel movement. Patient given CHG bath, wound care performed, linens changed. Patient repositioned, tolerated well
--- NOTE | 2019-08-26 14:30 | NUR ---
Nursing Note Patient repositioned in bed, given oral care. Patient tolerated well
[2019-08-26] MEDS: LEVOFLOXACIN 500 MG/D5W 100 ML IV SCH (15:17)
[2019-08-26] MEDS: TAMSULOSIN HCL 0.4 MG CAP PO SCH (17:58)
[2019-08-26] MEDS: APIXABAN 2.5 MG TABLET PO SCH (18:00)
--- NOTE | 2019-08-26 19:30 | NUR ---
Closing Note Patient report given to nightshift nurse via SBAR communication
--- NOTE | 2019-08-26 20:00 | NUR ---
PT RECIEVED AWAKE ALERT AND ONIENTED X4 .SKIN WITH WOUND . PT ON 10O LITER N S 50CC/HER,ON SINUS TACHY . VITAL SIGN STABLE . PT HAVE DIS TENDED ABD AT 5OCC/HR . VITAL SIGN STABLE .PT IS SOB . WILL BE MONITORING PT,S BREATHING .
[2019-08-27] VITALS (24 sets, daily range): BP systolic 88–122
--- NOTE | 2019-08-27 | NUR ---
PT GVEN HS CARE . PT REPOSITIONED . PT ON SINUS TACHYCARDIA .VITAL STABLE . PT WILL CONTINUED TO BE MONITORED CONTINUOUSLY.
[2019-08-27] MEDS: INSULIN REGULAR, HUMAN 100 UNITS/ML, 10 ML VIAL (humuLIN R) SUBCUT PRN ×5 (00:38→23:33)
--- NOTE | 2019-08-27 01:30 | NUR ---
dtr.had requested the administration of medication pain.i inquired re;which pain medication;ultram/morphine.the dtr.requested morphine.i ave administer morphine:0.5mg ivp.to f/u re-assess the pain mediocartio efficacy per pain mgx protocol. Addendum: 08/28/19 at 0108 by Nathan Lei RN the time of the note is incorrect;should be noted @1930p.
[2019-08-27] MEDS: 0.45% NACL 1,000 ML IV SCH (03:00)
[2019-08-27] MEDS: IPRATROPIUM BROM 0.5 MG/2.5 ML VIAL.NEB (ATROVENT) INH SCH ×4 (03:17→20:00)
[2019-08-27] MEDS: LevALBUTEROL HCL 1.25 MG/0.5 ML *CONC.* VIAL.NEB (XOPENEX CONC.) INH SCH ×4 (03:17→20:00)
--- NOTE | 2019-08-27 05:00 | NUR ---
AM CARE GIVEN . PT BP 88/62 . VITAL SIGN BEING MONITORED . PY REMAIN T MODIFIED CODE .
[2019-08-27 06:01] LABS: BASOPHILS % (AUTO) 0.2 % (0.0-2.0); EOSINOPHILS # (AUTO) 0.2 K/uL (0.0-0.4); EOSINOPHILS % (AUTO) 0.8 % (0.0-4.0); HEMATOCRIT 36.2 % (36-54); HEMOGLOBIN 11.6 g/dL (14.0-18.0); LYMPHOCYTES # (AUTO) 1.2 K/uL (1.0-5.5); LYMPHOCYTES % (AUTO) 5.4 % (20.5-51.5); MEAN CORPUSCULAR HEMOGLOBIN 30 pg (27-31); MEAN CORPUSCULAR HGB CONC 32 % (32-36); MEAN CORPUSCULAR VOLUME 92 fL (79.0-98.0); MONOCYTES # (AUTO) 1.8 K/uL (0.0-1.0); MONOCYTES % (AUTO) 8.4 % (1.7-9.3); NEUTROPHILS # (AUTO) 18.5 K/uL (1.8-7.7); NEUTROPHILS % (AUTO) 85.2 % (40.0-70.0); PLATELET COUNT (AUTO) 198 K/uL (130-430); RED BLOOD CELL COUNT(AUTO) 3.95 MIL/uL (4.2-6.2); WHITE BLOOD COUNT (AUTO) 21.7 K/uL (4.8-10.8)
[2019-08-27 06:34] LABS: ALANINE AMINOTRANSFERASE 36 U/L (12-78); ALBUMIN 1.7 g/dL (3.4-4.8); ANION GAP 4 (5-15); ASPARTATE AMINOTRANSFERASE 24 U/L (10-37); CALCIUM 10.3 mg/dL (8.4-11.0); CHLORIDE 103 mmol/L (98-107); CREATININE 1.45 mg/dL (0.55-1.30); GLUCOSE 277 mg/dL (70-99); POTASSIUM 4.4 mmol/L (3.5-5.1); SODIUM SERUM 133 mmol/L (136-145); TOTAL BILIRUBIN 0.7 mg/dL (0.0-1.0); UREA NITROGEN, BLOOD 75 mg/dL (8-21)
[2019-08-27] MEDS: metroNIDAZOLE 500 mg/NS 100 ML IV SCH ×3 (07:23→21:00)
[2019-08-27] MEDS: guaiFENesin 200 MG/CODEINE 20 MG/ 10 ML UDC PO SCH (07:23)
[2019-08-27] MEDS: LEVOTHYROXINE SODIUM 0.075 MG TABLET PO SCH ×2 (07:25→18:39)
--- NOTE | 2019-08-27 07:40 | NUR ---
Opening Note Received patient report from endorsing RN
[2019-08-27] MEDS: SODIUM POLYSTYRENE SULFONATE 15 GM/60 ML UDBTL PO SCH (09:00)
[2019-08-27] MEDS: BISACODYL 10 MG/SUPPOSITORY RC SCH (09:00)
[2019-08-27] MEDS: traMADol HCL HCL 50 MG TABLET (ULTRAM) PO PRN (09:09)
[2019-08-27] MEDS: LACTULOSE 20 GM/30 ML UDC PO SCH ×2 (09:09→20:58)
[2019-08-27] MEDS: CHOLECALCIFEROL (VITAMIN D3) 2,000 UNIT TABLET PO SCH (09:10)
[2019-08-27] MEDS: MAGNESIUM OXIDE 400 MG TABLET PO SCH ×2 (09:11→20:59)
[2019-08-27] MEDS: MEGESTROL ACETATE 400 MG/10 ML UDC PO SCH ×2 (09:11→20:59)
[2019-08-27] MEDS: LISINOPRIL 5 MG TABLET PO SCH (09:11)
[2019-08-27] MEDS: DOCUSATE SODIUM 100 MG CAPSULE PO SCH ×2 (09:11→20:58)
[2019-08-27] MEDS: ALLOPURINOL 100 MG TABLET (ZYLOPRIM) PO SCH (09:11)
[2019-08-27] MEDS: CALCIUM CARBONATE/VITAMIN D3 1 TAB TABLET PO SCH ×2 (09:11→20:59)
[2019-08-27] MEDS: CYANOCOBALAMIN 1000 mCg TABLET PO SCH (09:12)
[2019-08-27] MEDS: FERROUS SULFATE 142 MG TABLET.ER PO SCH (09:12)
[2019-08-27] MEDS: methylPREDNISolone SOD SUCC 40 MG/ML VIAL IVP SCH ×2 (09:16→20:58)
--- NOTE | 2019-08-27 10:00 | NUR ---
Round Dr. Hillman at bedside assessing patient, physician entered orders
[2019-08-27] MEDS: NACL 0.9% 1,000 ML IV SCH (13:01)
--- NOTE | 2019-08-27 13:50 | NUR ---
RT NOTES- HFNC 100% AT 35L PER PT BACK ON HFNC. KEEPING SPO2 BETWEEN AT 92-93% AT THIS TIME. CHRISTOPHER QUIGLEY NOTIFED.
--- NOTE | 2019-08-27 13:50 | NUR ---
Nursing Note Patient has increased congestion in upper lobes and O2 saturation of 84% while on 9L Oxymizer. Dr. Hillman contacted and new orders received.
[2019-08-27] MEDS ORDERED: VANCOMYCIN HCL 1,500 MG in NS 250 ML IV SCH (14:00)
[2019-08-27] MEDS ORDERED: FUROSEMIDE 20 MG/2 ML VIAL IVP ONE (14:00)
--- NOTE | 2019-08-27 16:45 | NUR ---
Round Dr. Garcia at bedside assessing patient, physician entered orders
--- NOTE | 2019-08-27 17:45 | NUR ---
Nursing Note Patient given CHG bath, linens changed, gown changed. Patient's dressing on coccyx was changed. Patient had a BM. Patient tolerated procedure well
[2019-08-27] MEDS: TAMSULOSIN HCL 0.4 MG CAP PO SCH (18:39)
[2019-08-27] MEDS: APIXABAN 2.5 MG TABLET PO SCH (18:40)
[2019-08-27] MEDS: LEVOFLOXACIN 500 MG/D5W 100 ML IV SCH (18:40)
--- NOTE | 2019-08-27 19:15 | NUR ---
change of shift.pt prt guarded general status.loc status lethargic,weak.loc;confused.code status;modified;no compressions.intubation,no defibrillation.respiratory status;labored.o2 therapy high flow;administering;o2:35l @100%. family/dtr. present.call light/telephone w/in reach of the pt.
[2019-08-27] MEDS: MORPHINE 2 MG/ML INJ. SYRINGE IVP PRN (19:25)
--- NOTE | 2019-08-27 19:28 | NUR ---
Closing Note Patient report given to nightshift nurse via SBAR
--- NOTE | 2019-08-27 19:30 | NUR ---
the dtr.had requested medication ;pain.i inquired which medication;ultram/morphine;dtr requested the morphine; i have administered ;morphine;0.5mg ivp.to f/u;re-assess the efficacy of the medication;pain.per pain mgx protocol.
--- NOTE | 2019-08-27 20:00 | NUR ---
pt.assessed.v/s assessed;note b/p values.noted the respiratory status;labored;o2-sat%=99%.i have attended to suctioning the pt.picc line intact;patent:iv fluids infusing.ledesma cath intact;patent;urine content present.pt.assessed for cleanliness.pt repositioned. call light/telephone placed w/in reach of the pt.
--- NOTE | 2019-08-27 20:43 | NUR ---
DR DUDLEY Pt very restless, Dr Dudley notified, orders received. 1. Xanax 0.25 PO Q 8HPRN agitation.
[2019-08-27] MEDS ORDERED: ALPRAZolam 0.25 MG TABLET PO PRN (20:45)
--- NOTE | 2019-08-27 21:00 | NUR ---
2100p medications administered. had been paged.dtr had requested medication for sedation; anxiety. paged per [email or web address]/[email or web address]-[email or web address]. returned the page.apprised,of the dtr's requests. ordered;xanax;0.25mg po q-8hrs/p;anxiety.i have administered the xanax.to f/u re-assess the efficacy of the medication.
--- NOTE | 2019-08-27 22:00 | NUR ---
pt.assessed.v/s assessed;b/p values noted low;to continue to asses the b/p.pt.asymptomatic.respiratory status; labored. o2-sat%=98%.i have atten to oral suctioning.picc line intact;patent;iv fluids infusing.ledesma cath intact;patent:urine content present.pt.assessed for cleanliness.pt.repositioned.call light/telephone placed w/in reach of the pt.
[2019-08-27] MEDS ORDERED: TEMAZEPAM 15 MG CAPSULE PO PRN (23:15)
--- NOTE | 2019-08-27 23:15 | NUR ---
the dtr.had requested medication;sleep. paged. returned the page.i apprised of the dtr's requests. ordered;restoril:15mg po q-hs/prn.i have administered restoril;15mg po.to f/u;re-asses the efficacy of the medication.
[2019-08-28] VITALS (7 sets, daily range): BP systolic 93–115
--- NOTE | 2019-08-28 | NUR ---
pt.assessed.v/s assessed;noted b/p values w/in normal limits.i have re-located t b;p cuff to the rt.lower extremity.pt.assessed for cleanliness. pt.repositioned.picc line intact;patent.iv fluid infusing.ledesma cath intact;patent;urine content present.general status;guarded. respiratory status;labored.high flow intact infusing.02-sat%=98%.call light/telephone placed w/in reach of the pt. Addendum: 08/28/19 at 0154 by Nathan Lei RN i have assessed the blood glucose;values;227mg/dl.i have apprised the dtr;of the blood glucose value. i have administered;insulin;regular;6-units.
[2019-08-28] MEDS: LevALBUTEROL HCL 1.25 MG/0.5 ML *CONC.* VIAL.NEB (XOPENEX CONC.) INH SCH (01:17)
[2019-08-28] MEDS: IPRATROPIUM BROM 0.5 MG/2.5 ML VIAL.NEB (ATROVENT) INH SCH (01:17)
--- NOTE | 2019-08-28 02:00 | NUR ---
pt.assessed.v/s assessed;b/p values noted.pt.assessed for cleanliness.pt.repositioned.picc line intact;patent;iv fluids infusing. ledesma cath intact;patent;urine content present.respiratory status;labored:o2-sat5=98%.call light/telephone w/in reach of the pt.
[2019-08-28] MEDS: NACL 0.9% 1,000 ML IV SCH (02:48)
--- NOTE | 2019-08-28 04:00 | NUR ---
pt.assessed.v/s assessed:b/p values low.pt.asymptomatic.respiratory status;slight labored.o2-sat%=96%.general status guarded. pt.assessed for cleanliness.pt.repositioned.picc line intact;patent.iv fluids infusing.ledesma cath intact;patent;urine content present. call light/telephone w/in reach of the pt.
[2019-08-28] MEDS: metroNIDAZOLE 500 mg/NS 100 ML IV SCH (05:43)
[2019-08-28 06:06] LABS: BASOPHILS % (AUTO) 0.1 % (0.0-2.0); HEMATOCRIT 32.4 % (36-54); HEMOGLOBIN 10.1 g/dL (14.0-18.0); LYMPHOCYTES # (AUTO) 1.6 K/uL (1.0-5.5); LYMPHOCYTES % (AUTO) 6.2 % (20.5-51.5); MEAN CORPUSCULAR HEMOGLOBIN 30 pg (27-31); MEAN CORPUSCULAR HGB CONC 31 % (32-36); MEAN CORPUSCULAR VOLUME 95 fL (79.0-98.0); MONOCYTES # (AUTO) 1.4 K/uL (0.0-1.0); MONOCYTES % (AUTO) 5.3 % (1.7-9.3); NEUTROPHILS # (AUTO) 23.2 K/uL (1.8-7.7); NEUTROPHILS % (AUTO) 88.4 % (40.0-70.0); PLATELET COUNT (AUTO) 200 K/uL (130-430); RED BLOOD CELL COUNT(AUTO) 3.41 MIL/uL (4.2-6.2); RED CELL DISTRIBUTION WIDTH 22.9 % (9.0-15.0); WHITE BLOOD COUNT (AUTO) 26.3 K/uL (4.8-10.8)
[2019-08-28] MEDS: INSULIN REGULAR, HUMAN 100 UNITS/ML, 10 ML VIAL (humuLIN R) SUBCUT PRN (06:09)
--- NOTE | 2019-08-28 06:22 | NUR ---
pt.assessed.v/s assessed;noted b/p value low.pt.asymptomatic.i have assessed the blood glucose;value;334mg/dl. i have administered;insulin;regular:8-units.pt.assessed for cleanliness.pt.repositioned.picc line intact;patent iv fluids infusing.i have administered the flagyl; abx;ivpb;0600a dose.ledesma cath intact;patent;urine content present.general status;guarded,affect:lethargic.respiratory status;labored.o2-sat%=96%.call light/telephone w/in reach of the pt. Addendum: 08/28/19 at 0639 by Nathan Lei RN the synthroid;0700a dose has been held until:0900a per the dtr's requests.
[2019-08-28 06:40] LABS: ALANINE AMINOTRANSFERASE 33 U/L (12-78); ALBUMIN 1.4 g/dL (3.4-4.8); ANION GAP 3 (5-15); ASPARTATE AMINOTRANSFERASE 20 U/L (10-37); CALCIUM 10.3 mg/dL (8.4-11.0); CHLORIDE 103 mmol/L (98-107); CREATININE 2.16 mg/dL (0.55-1.30); GLUCOSE 374 mg/dL (70-99); POTASSIUM 4.9 mmol/L (3.5-5.1); SODIUM SERUM 134 mmol/L (136-145); TOTAL BILIRUBIN 0.6 mg/dL (0.0-1.0)
--- NOTE | 2019-08-28 07:35 | NUR ---
Opening Note Received patient report from nightshift nurse via [facility] at bedside, Current vital signs are P: 62, BP:94/34, R: 20, SpO2: 75% on high flow 35L/FiO2: 100%. Patient appears pale, lethargic, is taking shallow breaths. RT contacted, patient placed with feet elevated, Dr. Hillman contacted
--- NOTE | 2019-08-28 07:37 | NUR ---
MD Call Daughter, Fay Ribeiro, at bedside expressed desire to change code status to modified code. Dr. Hillman informed regarding patient's condition, new code status in place, orders for Bi-Pap and Levophed given. Patient's current vital signs are P: 73, BP: 94/27, SpO2: 74%, R: 9, T: 96.2.
[2019-08-28 07:53] LABS: UREA NITROGEN, BLOOD 102 mg/dL (8-21)
--- NOTE | 2019-08-28 07:57 | NUR ---
Pts monitor shows ladi rhythm rate 30's going into VT/Vfib. Fay Marques at bedside and so are other family members. Pt was just made a modified code bipap and medications only. I informed Rossy Shelli, pts documented DPOA if she wanted me to call a code blue because I would need to right now. She said she didnt know what she should do, "I dont want him to suffer anymore, let him be". No code clue called, however, I did call the ER MD to come down. Dr. Cortes arrived immediately and pronounced the patient upon his arrival and informed Rossy Marques. Emotional support provided.
[2019-08-28] MEDS ORDERED: NOREPINEPHRINE BITARTRATE 4 MG in NS 246 ML IV PRN (08:00)
[2019-08-28] MEDS ORDERED: NOREPINEPHRINE 4 MG/4 ML VIAL IV ONE (08:03)
--- NOTE | 2019-08-28 12:05 | NUR ---
Nursing Note Patient's body picked up for transport by [employer] commissary representative
== END 2019-08-28 08:03 | disposition expired | DRG 177 ==
LOC: SED 15:30 → STU 17:33 → SIC 08-24 13:23
PROVIDERS: ADMIT Family Medicine; ATTEND Family Medicine
DX: J69.0 Pneumonitis due to inhalation of food and vomit (principal); E43 Unspecified severe protein-calorie malnutrition; J96.21 Acute and chronic respiratory failure with hypoxia; N17.9 Acute kidney failure, unspecified; E87.2 Acidosis; E87.1 Hypo-osmolality and hyponatremia; C78.00 Secondary malignant neoplasm of unspecified lung; C79.31 Secondary malignant neoplasm of brain; D64.9 Anemia, unspecified; Z96.649 Presence of unspecified artificial hip joint; I10 Essential (primary) hypertension; E11.9 Type 2 diabetes mellitus without complications; E86.0 Dehydration; E03.9 Hypothyroidism, unspecified; E87.5 Hyperkalemia; K21.9 Gastro-esophageal reflux disease without esophagitis; E87.6 Hypokalemia; D49.0 Neoplasm of unspecified behavior of digestive system; K57.90 Diverticulosis of intestine, part unspecified, without perforation or abscess without bleeding; Z68.22 Body mass index [BMI] 22.0-22.9, adult; Z95.828 Presence of other vascular implants and grafts; Z87.891 Personal history of nicotine dependence; Z86.718 Personal history of other venous thrombosis and embolism; Z85.46 Personal history of malignant neoplasm of prostate; Z85.118 Personal history of other malignant neoplasm of bronchus and lung; Z88.0 Allergy status to penicillin; Z88.8 Allergy status to other drugs, medicaments and biological substances; Z79.899 Other long term (current) drug therapy
CPT/HCPCS: 36415; 36600; 71045; 71250-TC; 80048; 80053; 80076; 81000-TC; 82607; 82728; 82746; 82803-TC; 82962; 83540-TC; 83550-TC; 83605; 83735-TC; 83880; 84484; 85007; 85025; 85027; 85610-TC; 85730-TC; 87040-TC; 87081; 87086; 93005; 94640; 94760; 96361; 96365; 96375; 97110-GP; 97530-GP; 99291; C1751; G0378; J1030; J1815; J1940; J1956; J2270; J2930; J3370; J3490; J7030; J7050; J7060; J7512; J7612